=== PATIENT | male | born 1965 | race Two or more races ===

== ENCOUNTER → 2016-11-27 | Outpatient (CLI) | payer MEDICARE, MEDICAID ==
--- NOTE | 2016-12-17 00:40 | ECWPNPC ---
PATIENT NAME: CARRIE BERRIOS : 1965 GENDER: MALE VISIT DATE: 11/27/2016 DISCHARGE DATE: 11/27/16 1426 VISIT LOCKED DATE TIME: PHYSICIAN: MILLA WHEELER RESOURCE: MILLA WHEELER REASON FOR APPOINTMENT 1. THORACIC/LOW BACK HISTORY OF PRESENT ILLNESS FALL RISK SCREENIN51 Y/O MALE REFERRED BY [facility] FOR EVALUATION OF OF CHRONIC LOW BACK PAIN AND LEFT LEG PAIN.PAIN BEGAN SEVERAL YEARS AGO WITHOUT PRECIPITATING EVENT.PAIN IS AGGREVATED BY PROLONGED SITTING OR STANDING.RELIEVED SOMEWHAT WITH HEAT.TRIALED PT 2 YEARS AGO WITHOUT IMPROVEMENT.RATING PAIN VAS 7/10.PAIN IS CONSTANT BURNING AND ACHING.REPORTS POOR SLEEP DUE TO PAIN. SCREENING :NO FALLS IN THE PAST YEAR PAIN SCREENING: PATIENT HAS A COMPLAINT OF ACUTE OR CHRONIC PAIN :YES CURRENT MEDICATIONS TAKING MELOXICAM 15 MG TABLET 1 TABLET ORALLY ONCE A DAY TAKING GABAPENTIN 300 MG CAPSULE 1 CAPSULE ORALLY THREE TIMES A DAY MEDICATION LIST REVIEWED AND RECONCILED WITH THE PATIENT PAST MEDICAL HISTORY EMPHYSEMA LOW BACK PAIN ALLERGIES TRAMADOL: RASH: ALLERGY FLEXERIL: RASH: ALLERGY NAPROXEN: RASH: ALLERGY IBUPROFEN: BREATHING PROBLEMS: ALLERGY MORPHINE: BLINDING HEADACHE: ALLERGY SURGICAL HISTORY LEFT EARDRUM RECONSTRUCTION CHILD FAMILY HISTORY FATHER: 72 YRS, DIAGNOSED WITH CANCER MOTHER: 70 YRS, DIAGNOSED WITH CANCER 3 BROTHER(S) , 3 SISTER(S) - HEALTHY. 1 SISTER WITH LUPUS AND MS1 SISTER W FIBROMYALGIA, RA. SOCIAL HISTORY GENERAL: TOBACCO USE ARE YOU A:CURRENT SMOKER HOW MANY CIGARETTES A DAY DO YOU SMOKE?31 OR MORE HOW SOON AFTER YOU WAKE UP DO YOU SMOKE YOUR FIRST CIGARETTE?WITHIN 5 MIN HOW OFTEN DO YOU SMOKE CIGARETTES?EVERY DAY PATIENT COUNSELED ON THE DANGERS OF TOBACCO USE AND URGED TO QUIT:11/27/2016 ARE YOU INTERESTED IN QUITTING?NOT READY TO QUIT COUNSELED THE PATIENT ON SMOKING EFFECTS, EDUCATION [id number]/14/2017 LUNG CANCER SCREENING SMOKING STATUS:CURRENT SMOKER ALCOHOL SCREENING POINTS0 INTERPRETATIONNEGATIVE RESTORATIONIST [id number] ANABAPTIST LANGUAGE LANGUAGES SPOKEN:[place]EN[place] EDUCATION LEVEL OF EDUCATION:HIGH SCHOOL LEARNING BARRIERS / SPECIAL NEEDS HEARING IMPAIRED?NO VISION IMPAIRED?YES :CORRECTIVE LENSES COGNITIVELY IMPAIRED?NO READINESS TO LEARN?YES LEARNING PREFERENCES?YES :[employer] DIRECTIVES HEALTH CARE PROXY?NO WOULD YOU LIKE MORE INFORMATION?NO DO YOU HAVE A DNR?NO WOULD YOU LIKE MORE INFORMATION?NO LIVING WILL?NO WOULD YOU LIKE MORE INFORMATION?NO POWER OF DYNAMITE PACKING MACHINE FEEDER?NO HOSPITALIZATION/MAJOR DIAGNOSTIC PROCEDURE DENIES PAST HOSPITALIZATION REVIEW OF SYSTEMS REVIEWED BY: PROVIDER: MILLA FINN . CONSTITUTIONAL: ANY CHANGE IN YOUR MEDICAL CONDITION? NO . CHILLS NO . FEVER NO . INFECTION: DO YOU HAVE NEW INFECTIONS? NO . DO YOU HAVE HISTORY OF MRSA? NO . MUSCULOSKELETAL: ANY NEW PATTERNS OF PAIN OR NUMBNESS? NO . SYTEMIC LUPUS NO . GASTROENTEROLOGY: ANY NEW CHANGE IN BOWEL CONTROL? NO . BARRETTS ESOPHAGUS NO . CIRRHOSIS NO . HEPATITIS NO . LIVER FAILURE NO . ACID REFLUX NO . UNEXPLAINED WEIGHT LOSS NO . GENITOURINARY: ANY NEW CHANGE IN BLADDER CONTROL? NO . IS THERE A CHANCE YOU COULD BE ? NO . HEMATOLOGY/LYMPH: DO YOU TAKE ANY BLOOD THINNERS? (FOR EXAMPLE- COUMADIN, PLAVIX, AGGRENOX, PLATEL, PRADAXA, OR XARELTO) NO . WHEN WAS YOUR LAST DOSE? DATE: TIME: . LOW PLATELET COUNT NO . SICKLE CELL DISEASE NO . VON WILLIEBRANDS NO . FACTOR V LEIDEN NO . THALLASEMIA NO . ANEMIA NO . EASY BRUISING NO . NEUROLOGY: HAVE YOU FALLEN IN THE PAST 6 MONTHS? NO . ANY NEW EXTREMITY NUMBNESS OR WEAKNESS? NO . HEAD INJURY NO . DEMENTIA NO . CEREBRAL PALSY NO . MULTIPLE SCLEROSIS NO . DIZZINESS NO . HEADACHE NO . STROKES NO . VERTIGO NO . CARDIOLOGY: DO YOU HAVE A PACEMAKER OR DEFIBRILLATOR? NO . ANGINA NO . HEART ATTACK NO . HEART SURGERY NO . CONGESTIVE HEART FAILURE/FLUID OVERLOAD NO . CHEST PAIN NO . HIGH BLOOD PRESSURE NO . IRREGULAR HEART BEAT NO . RESPIRATORY: HAVE YOU BEEN SICK IN THE PAST WEEK? NO . FEVER NO . FLU LIKE SYMPTOMS? NO . CPAP NO . BYPAP NO . ASTHMA NO . EMPHYSEMA NO . CHRONIC LUNG DISEASES NO . SHORTNESS OF BREATH ON EXERTION NO . COUGH NO . SNORING NO . INTEGUMENTARY: DO YOU HAVE ANY RASHES OR OPEN SORES? NO . ALLERGIC/IMMUNO: ARE YOU ALLERGIC TO SHELLFISH OR IV DYE? NO . ANY NEW ALLERGIES? NO . PSYCHIATRIC: DO YOU HAVE THOUGHTS OF HURTING YOURSELF OR SOMEONE ELSE? NO . ARE YOU ABUSED, NEGLECTED, OR IN AN UNSAFE ENVIRONMENT? NO . ENDOCRINOLOGY: ARE YOU DIABETIC? NO . THYROID DISORDER NO . OTHER: DO YOU NEED ANY PRESCRIPTIONS? NO . IF YES, PLEASE LIST: ____ . ANY NEW PROBLEMS WITH YOUR MEDICATIONS? NO . WHEN DID YOU LAST EAT? ____ . WHEN DID YOU LAST DRINK? ____ . WHAT DID YOU LAST DRINK? ____ . NAME OF PERSON DRIVING YOU HOME? ____ . DO YOU HAVE ANY OTHER QUESTIONS OR CONCERNS NO . VITAL SIGNS WT 154.0 LBS, HT 65", BMI 25.62 INDEX, BP 144/93 MM HG, HR 80 /MIN, RR 16 /MIN, TEMP 98.7 F, OXYGEN SAT % 91%, SAFE IN ENV? (Y/N) Y, NA INITIALS TL 1334, REVIEWED BY: EM. EXAMINATION GENERAL EXAMINATION: GENERAL APPEARANCE:COMFORTABLE,ALERT,, COOPERATIVE . PSYCHAFFECT NORMAL. NECK:NO LYMPHADENOPATHY. LUNGS:LUNG BROWN ARE CLEAR TO AUSCULTATION BILATERALLY. GOOD MOVEMENT OF AIR. HEART:S1, S2 IN A REGULAR RATE AND RHYTHM. NO SIGNIFICANT MURMURS, RUBS OR GALLOPS NOTED. BACK:TENDERNESS OVER L/S AXIS.SPECIFIC POINT TENDERNESS OVER LEFT SIJ. ABDOMEN:SOFT, NON-TENDER, NO ORGANOMEGALY, BOWEL SOUNDS ARE NORMAL. LUMBAR SPINE/LOWER BACK: PALPATION:TRIGGER POINT LEFT LUMBAR PARASPINAL. MOTOR SYSTEM:5/5 BLE. SENSORY EXAM:NORMAL BILATERAL LE. REFLEXES:2/4 AND SYMMETRIC BLE. ASSESSMENTS LOW BACK PAIN POTENTIALLY ASSOCIATED WITH RADICULOPATHY - M54.5 (PRIMARY) MYALGIA - M79.1 TREATMENT LOW BACK PAIN POTENTIALLY ASSOCIATED WITH RADICULOPATHY [facility] MRI SPINE, L.S. WITHOUT [id number] PROCEDURE CODES FA211 ESTABILISHED PATIENT [facility] FACILITY CHARGE G8730 PAIN ASSESS POS TOOL F/U PLAN DOC G8427 DOC MEDS VERIFIED W/PT OR RE DISPOSITION & COMMUNICATION FOLLOW UP 4 WEEKS ELECTRONICALLY SIGNED BY HUMA MORENO ON 12/16/2016 AT 01:19 PM EDT DISCLAIMER : THIS IS A VISIT SUMMARY EXTRACTED FROM THE [employer] CHART. IT IS NOT A COPY OF THE [employer] PROGRESS NOTE. MARLENA
== END ==
LOC: M PAIN 13:20
PROVIDERS: ATTEND Nurse Practitioner Family
DX: M54.5 Low back pain (principal); M79.1 Myalgia; G89.29 Other chronic pain; Z79.899 Other long term (current) drug therapy; F17.210 Nicotine dependence, cigarettes, uncomplicated; Z88.5 Allergy status to narcotic agent; Z88.6 Allergy status to analgesic agent; Z88.8 Allergy status to other drugs, medicaments and biological substances

== ENCOUNTER → 2017-06-01 | Outpatient (REF) | payer MEDICARE, MEDICAID ==
[2017-06-01 17:33] LABS: BASO # 0.1 10^3/uL (0.0-0.2); BASO % 0.8 % (0.0-1.0); EOS # 0.3 10^3/uL (0.0-0.50); EOS % 2.2 % (0.0-3.0); HEMOGLOBIN 18.4 g/dl (14.0-18.0); IMMATURE GRANULOCYTE # 0.1 10^3/uL (0-0); IMMATURE GRANULOCYTE % 0.6 % (0-0); LYMPH # 3.2 10^3/uL (1.5-4.5); MEAN CORPUSCULAR HEMOGLOBIN 27.1 pg (27.0-33.0); MEAN CORPUSCULAR HGB CONC 31.7 g/dl (32.0-36.5); MEAN CORPUSCULAR VOLUME 85.5 fl (80.0-96.0); MONO # 1.1 10^3/uL (0.0-0.8); MONO % 9.6 % (0.0-5.0); NEUTROPHILS # 6.8 10^3/uL (1.8-7.7); NEUTROPHILS % 58.8 % (36.0-66.0); PLATELET COUNT, AUTOMATED 279 10^3/uL (150-450); RED BLOOD COUNT 6.78 10^6/uL (4.30-6.10); RED CELL DISTRIBUTION WIDTH 17.4 % (11.5-14.5); WHITE BLOOD COUNT 11.6 10^3/uL (4.0-10.0)
[2017-06-01 18:08] LABS: CREATININE FOR GFR 0.77 MG/DL (0.70-1.30); GLOMERULAR FILTRATION RATE > 60.0 (>60)
[2017-06-01 18:08] LABS: BLOOD UREA NITROGEN 14 MG/DL (7-18)
[2017-06-03 08:06] LABS: ALPHA 1 ANTITRYPSIN 147 mg/dL (90-200)
== END ==
LOC: M LAB REF 16:59
DX: J43.1 Panlobular emphysema (principal)
CPT/HCPCS: 82565

== ENCOUNTER → 2018-03-29 | Outpatient (CLI) | payer MEDICARE, MEDICAID | LOC: M PLARAD 13:10 | DX: R59.0 Localized enlarged lymph nodes (principal); N28.1 Cyst of kidney, acquired; N40.0 Benign prostatic hyperplasia without lower urinary tract symptoms; N42.0 Calculus of prostate | CPT/HCPCS: 78815 ==

== ENCOUNTER → 2018-04-19 | Outpatient (CLI) | payer MEDICARE, MEDICAID | LOC: M SLEEP 19:52 | DX: G47.33 Obstructive sleep apnea (adult) (pediatric) (principal); R06.83 Snoring | CPT/HCPCS: 95810 ==

== ENCOUNTER 2019-10-10 06:27 | Inpatient (IN) | payer MEDICARE, MEDICAID ==
[2019-10-10] VITALS (16 sets, daily range): BP systolic 118–144; BP diastolic 64–95; O2SAT 84–94
[~2019-10-10] VITALS: Ht 165.1 cm; Wt 64.8 kg
[~2019-10-10 06:27] MED LIST: ANOR1AER INH; ASPI81TA85 PO; HYDR-3713 PO; PROAAER10 INH; SIMV40TA20 PO
[2019-10-10] MEDS ORDERED: SALMETEROL DISKUS 50MCG INHALER (SEREVENT) INH SCH (09:00)
[2019-10-10 09:07] LABS: ABG BASE EXCESS 12.1 (-2.0-2.0); ABG HCO3 42.7 MEQ/L (22.0-26.0); ABG O2 SATURATION 90.2 % (95.0-99.0); ABG STANDARD HCO3 35.8 MEQ/L (22.0-26.0); ABG TOTAL CO2 45.1 MEQ/L (22.0-29.0); ABG pH (ARTERIAL) 7.345 UNITS (7.350-7.450)
[2019-10-10] MEDS ORDERED: ALBUTEROL 90 MCG/ACT 8GM HFA INHALER INH PRN (10:30)
[2019-10-10 10:35] LABS: MAGNESIUM LEVEL 2.2 MG/DL (1.8-2.4)
[2019-10-10] MEDS ORDERED: TIOTROPIUM INHALER/CAPSULE (SPIRIVA) INH SCH (10:40)
[2019-10-10 11:19] LABS: HEMATOCRIT 59.6 % (42.0-52.0); MEAN CORPUSCULAR HEMOGLOBIN 29.3 pg (27.0-33.0); MEAN CORPUSCULAR HGB CONC 29.2 g/dl (32.0-36.5); MEAN CORPUSCULAR VOLUME 100.3 fl (80.0-96.0); PLATELET COUNT, AUTOMATED 185 10^3/uL (150-450); RED BLOOD COUNT 5.94 10^6/uL (4.30-6.10); WHITE BLOOD COUNT 7.5 10^3/uL (4.0-10.0)
[2019-10-10 11:21] LABS: HEMOGLOBIN 17.4 g/dl (13.5-17.5)
[2019-10-10 11:32] LABS: ALBUMIN 3.2 GM/DL (3.2-5.2); ALT/SGPT 14 U/L (12-78); BILIRUBIN,TOTAL 0.8 MG/DL (0.2-1.0); BLOOD UREA NITROGEN 15 MG/DL (7-18); CALCIUM LEVEL 8.9 MG/DL (8.5-10.1); CARBON DIOXIDE LEVEL 47 MEQ/L (21-32); CHLORIDE LEVEL 89 MEQ/L (98-107); CREATININE FOR GFR 0.53 MG/DL (0.70-1.30); GLOMERULAR FILTRATION RATE > 60.0 (>56); GLUCOSE, FASTING 117 MG/DL (70-100); SODIUM LEVEL 139 MEQ/L (136-145); TOTAL PROTEIN 6.7 GM/DL (6.4-8.2)
[2019-10-10] MEDS ORDERED: AZITHROMYCIN 250MG TABLET PO ONE (12:00)
--- NOTE | 2019-10-10 12:10 | REP ---
PORTABLE CHEST X-RAY: Single view. HISTORY: COPD exacerbation. No comparison chest x-rays. Comparison is made with PET/CT imaging from March 29, 2018. FINDINGS: Monitoring electrodes overlie the chest. The lungs are symmetrically aerated and free of infiltrate. The pleural angles are sharp. Heart size is at the upper range of normal. Vascular interstitial markings are somewhat prominent. IMPRESSION: Borderline heart size. No focal infiltrate. Prominent pulmonary vascular interstitial markings. Electronically Signed by Dionte Tanner MD 10/10/2019 05:58 P
[2019-10-10] MEDS ORDERED: cefTRIAXone SOD 2 GM in D5W MINI-BAG PLUS 50 ML IV SCH (13:00)
[2019-10-10] MEDS: LEVALBUTEROL 1.25 MG/0.5 ML CONCENTRATE NEB INH SCH ×3 (14:11→23:09)
[2019-10-10] MEDS: MOXIFLOXACIN 400 MG TAB PO SCH (14:32)
--- NOTE | 2019-10-10 15:11 | HPEPDOC ---
[facility] Medical History & Physical Date of Admission October 10, 2019 Date of Service: October 10, [address] Marcelo Zamorano D.O. Pulmonology Attending Physician: PRISCA GRAMAJO MD History and Physical CHIEF COMPLAINT: Weakness HISTORY OF PRESENT ILLNESS: Jaime is a 53-year-old male with PMHx of O2 dependent COPD on 4 L continuously at home, sleep apnea not on CPAP, who presented as a direct admission from [facility] ([facility]) for acute hypercapnic respiratory failure. Over the past week, he has had consistent weakness, most prominently in his lower extremities with multiple falls. He denies any loss of consciousness or direct contact to the head with any fall. He reports falling, on average, twice per day. One fall occurred into a mirror, which subsequently broke and caused minor cuts to his elbow and left forearm, while all other falls occurred on to a carpeted floor. He believes the main cause of his falls is his lower extremities "giving out," and not due to mechanical fall etiologies. He also endorses accompanying upper and lower extremity shakes/tremors in the last week, which, he feels, have exacerbated his fall risk. Due to his weakness, he has struggled to get out of bed over the past few days and, as a result, has not eaten a full meal since Wednesday (10/05). He denies any shortness of breath over the past week and states the main impetus behind his presentation to [facility] was a witnessed fall by his roommate. The roommate subsequently informed his sister, and she then called EMS. At [facility], his initial arterial blood gas was pH 7.29/pCO2 117/HCO3 55.9 and he was subsequently placed on non-invasive mechanical ventilation/BiPAP and transferred to [facility]. Other notable [facility] labs: CRP 23.1, BNP 485, and albumin 3.0. Initial ABG on presentation [facility] was pH 7.345/pCO2 80/PaO2 59. Of note, he recently quit smoking 2 weeks ago after a 78 pack year history largely due to encouragement from his sister. He follows with Dr. Marcelo Zamorano q6mo for outpatient pulmonology care. He verbally confirms his CODE STATUS is full code. PAST MEDICAL HISTORY: COPD, O2-dependent; uses 4L continuously at home Sleep apnea, not on home CPAP Former tobacco user (78-pack year history) Chronic back pain PAST SURGICAL HISTORY: Left ear drum reconstruction SOCIAL HISTORY: Single. Lives with sister and fellow roommate. Has 3 children. Currently unemployed on disability. 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 He is a former smoker, having quit 2 weeks ago after smoking for 39 years, averaging 2 packs per day (78 year pack history). Denies current or former alcohol use or illegal drug use. FAMILY HISTORY: Father: ; hypertension, cancer (patient unsure if it is liver or renal cancer) Mother: ; COPD One sister whom he lives with history of multiple myeloma Children: 3 grown children who are healthy ALLERGIES: Please see below. REVIEW OF SYSTEMS: CONSTITUTIONAL: Endorses roughly 10 pound unintentional weight loss in the past 6 months. Denies fever, chills, night sweats HEENT: Endorses nearsightedness and chronic blurry vision. Denies eye pain, ear pain, tinnitus, rhinorrhea, sinus congestion, dysphagia or odynophagia CARDIOVASCULAR: Denies chest pain, chest pressure, palpitations, lower extremity swelling RESPIRATORY: Denies shortness breath, cough, or pleuritic chest pain GASTROINTESTINAL: Denies abdominal pain, nausea, vomiting, diarrhea, recent blood in the stool GENITOURINARY: Denies dysuria or hematuria SKIN: Endorses minor scratches over his left elbow and dorsal left forearm MUSCULOSKELETAL: Endorses recent bilateral leg weakness; chronic back pain NEUROLOGICAL: Denies headache, lightheadedness, near-syncope, syncope, numbness or paresthesias of the extremities ENDOCRINE: Denies cold or heat intolerance HOME MEDICATIONS: Please see below. PHYSICAL EXAMINATION: VITAL SIGNS: Temperature 99.4, pulse 87, respiratory rate 27, blood pressure 126/87, pulse oximetry 89 % on 6 L high flow nasal cannula. PHYSICAL EXAMINATION: VITAL SIGNS: Please see below. GENERAL APPEARANCE: Laying in bed wearing noninvasive mechanical ventilation/BiPAP. No acute distress. Alert and oriented 3. Calm and cooperative. Easily distracted. HEENT: Wearing BiPAP mask. Normocephalic, atraumatic. PERRLA, noninjected, anicteric sclera. No teeth present. [place] and dry mucous membranes. Neck is supple with no cervical lymphadenopathy appreciated. RESPIRATORY: Breathing on 6 L of high flow nasal cannula. Bilateral squeaks with bilateral lung base, moderate inspiratory crackles. Poor respiratory effort with mild accessory muscle use (trapezius) and diminished tidal volume. Symmetric chest expansion. Speaking full sentences. CARDIOVASCULAR: RRR, no murmurs/rubs/gallops, +S1, S2. +hepatojugular reflex ABDOMEN: Soft, nontender. Moderate abdominal distention with no guarding or rigidity. Hepatomegaly. Negative White sign. EXTREMITIES: B/l UE fine tremors, more pronounced at rest. Lower extremities fr ee of edema with no appreciated cyanosis or clubbing NEUROLOGICAL: Awake, alert and oriented 3. No focal neurologic deficits appreciated. Sensation to light touch intact bilaterally, UE and LE PSYCHIATRIC: Mood and affect appear appropriate Skin: Skin overlying feet appears dirty and feet are cool to the touch. LN: No significant cervical or supraclavicular lymphadenopathy LABORATORY DATA: Please see below. IMAGING: Portable chest x-ray, 10/10/19: FINDINGS: Monitoring electrodes overlie the chest. The lungs are symmetrically aerated and free of infiltrate. The pleural angles are sharp. Heart size is at the upper range of normal. Vascular interstitial markings are somewhat prominent. IMPRESSION: Borderline heart size. No focal infiltrate. Prominent pulmonary vascular interstitial markings. MICROBIOLOGY: Please see below. ASSESSMENT & PLAN: This is a 53-year-old male w/ h/o O2 dependent COPD and sleep apnea not on home CPAP, who presented as direct admit from [facility] with acute hypercapnic respiratory failure secondary to COPD exacerbation. #Acute hypercapnic respiratory failure 2/2 COPD exacerbation -reported initial ABG at [facility]: pH 7.27/pCO2 117; placed on BiPap and transferred to [facility] with subsequent ABG: pH 7.345/pCO2 80/PaO2 59 -initial [facility] ABG shows pH near NL range with pCO2 80, likely indicating this high pCO2 is close to his compensated baseline and he's a chronic CO2 retainer characteristic of a COPD pts -With repeat ABG approaching nl pH, pt was taken off BiPap to see how he tolerates high-flow NC (initial O2 sat on 6L 88-90%) -Portable CXR showed no infiltrate with prominent pulmonary vascularization -home albuterol prn inhaler continued; home Anoro not on [facility] formulary, with possible alternatives held in setting of acute exacerbation with ordered short- acting inhalers held -d/t home O2-dependence with COPD, IV steroids chosen for acute anti- inflammation -scheduled Xopenex nebulizer treatments ordered (opted for rather than DuoNebs due to upper limit nl HRs and had mild tremors on exam) -Initial ABx choice of ceftriaxone and azithromycin; subsequently switched to PO moxifloxacin by pulmonology/CC service -Nocturnal BiPap ordered qHS and naps -Pulmonology/ Critical Care service consulted and primary team appreciates their insight and recommendations -O2 saturation titration orders: 88-92% -Continuous pulse ox -Two BCx + sputum cx and gram stain + procalcitonin ordered and pending -initial labs ordered: CBC, CMP, sMg, lactic acid #Chronic back pain -home norco continued -takes chronically at home; nonetheless, on pulse ox for monitoring #DVT prophylaxis: sc lovenox Disposition: Pending improved respiratory status/oxygenation Vital Signs Vital Signs Date Time Temp Pulse Resp B/P (MAP) Pulse Ox O2 Delivery O2 Flow Rate FiO2 10/10/19 12:00 99.2 102 20 144/83 (103) 88 High Flow Cannula 6.0 10/10/19 08:00 40 Laboratory Data Labs 24H Laboratory Tests 2 10/10/19 08:48: Blood Gas Bicarbonate Standard 35.8H, Arterial Blood pH 7.345L, Arterial Blood Partial Pressure CO2 80.0*H, Arterial Blood Partial Pressure O2 59.0L, Arterial Blood Total CO2 45.1H, Arterial Blood HCO3 42.7H, Arterial Blood Base Excess 12.1H, Arterial Blood Oxygen Saturation 90.2L 10/10/19 09:39: Nucleated Red Blood Cells % (auto) 0.0, Anion Gap 3L, Glomerular Filtration Rate > 60.0, Lactic Acid Level 0.9, Calcium Level 8.9, Magnesium Level 2.2, Total Bilirubin 0.8, Aspartate Amino Transf (AST/SGOT) 15, Alanine Aminotransferase (ALT/SGPT) 14, Alkaline Phosphatase 92, Total Protein 6.7, Albumin 3.2, Albumin/Globulin Ratio 0.9 CBC/BMP Laboratory Tests 10/10/19 09:39 Microbiology Microbiology 10/10/19 Blood Culture, Received Pending 10/10/19 Blood Culture, Received Pending Home Medications Scheduled Umeclidinium Brm/Vilanterol Tr (Anoro Ellipta 62.5-25 Mcg INH) 1 Aer Aer, 1 PUFF INH QHS Scheduled PRN Albuterol Sulfate (Proair Hfa) 108 Mcg/Act Aer, 2 PUFF INH for SHORTNESS OF BREATH Hydrocodone/Acetaminophen (Hydrocodone-Acetamin 5-325 mg) 1 Tab Tab, 1 TAB PO BID PRN for PAIN Allergies Coded Allergies: ibuprofen (Unverified Allergy, Severe, difficulty breathing, 10/10/19) naproxen (Unverified Allergy, Severe, rash,difficulty breathing, 10/10/19) tramadol (Unverified Allergy, Severe, difficulty breathing, 10/10/19) cyclobenzaprine (Verified Allergy, Intermediate, HIVES, 10/10/19) morphine (Unverified Adverse Reaction, Intermediate, severe headache, 10/10/19) A-FIB/CHADSVASC A-FIB History Current/History of A-Fib/PAF?: No Current PO Anticoag Therapy: GEM Hernandez D.O. October 10, 2019 14:38
[2019-10-10] MEDS: methylPREDNISolone INJ 40 MG/1 ML VIAL (J2920) IV SCH (17:48)
[2019-10-10] MEDS: IPRATROPIUM 0.02% SOLN 0.5MG/2.5 ML NEB INH SCH (23:09)
[2019-10-11] VITALS (18 sets, daily range): BP systolic 116–142; BP diastolic 71–87; O2SAT 87–93
--- NOTE | 2019-10-11 00:34 | CR ---
DATE OF CONSULTATION: 10/10/2019 CHIEF COMPLAINT: Falls. HISTORY OF PRESENT ILLNESS: Mr. Catalan is a 53-year-old male with a history of chronic obstructive pulmonary disease (COPD) Gold stage IV with chronic hypoxemic respiratory failure, on nasal cannula supplementation at 4 liters a minute, a history of sleep apnea, not on continuous positive airway pressure (CPAP), who presented with complaints of weakness and falls. The patient had noticed for the past week having weakness in his lower extremities with multiple falls. He denied having any lightheadedness or dizziness. No syncopal episodes and denied any injury or trauma to his head with these falls. He did also report having some twitching and tremors in his arms as well as in his legs for the past week, which he has never had before. The patient denied having any chest pain. He denied noticing any worsening shortness of breath or dyspnea. He does have some cough occasionally productive of mucus, which he did not feel had worsened significantly. He has noticed decreased oral intake due to weakness over the past few days. He denies having any fevers or chills. Denies noticing any significant wheezing. The patient reports he is mostly compliant with his inhaler therapy, particularly Anoro; however, he does not like the Arnuity and so is not very compliant with it. He has an albuterol rescue inhaler, which he states he uses as well, but does not use a nebulizer machine. PAST MEDICAL AND SURGICAL HISTORY: COPD. Chronic hypoxemic respiratory failure, on nasal cannula oxygen. Obstructive sleep apnea (KEVEN), not on CPAP. Nicotine dependence. Chronic back pain. Left eardrum reconstruction. 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 The patient states he was a former heavy smoker, about two packs a day for 39+ years. Had quit recently after his last visit with pulmonary a few weeks ago. Denies any significant alcohol use or illegal drug use. FAMILY HISTORY: Father with a history of hypertension and cancer unknown. Mother with a history of COPD. A sister with a history of multiple myeloma. HOME MEDICATIONS: Anoro, Arnuity, albuterol and hydrocodone acetaminophen as needed. ALLERGIES: IBUPROFEN, NAPROXEN, TRAMADOL, CYCLOBENZAPRINE, and MORPHINE. PHYSICAL EXAMINATION: Vital Signs: Temperature 99.4, pulse 87, respirations 27, blood pressure 126/87, oxygen saturation (O2 sat) 92% on bilevel positive airway pressure (BiPAP) at 40% FiO2. General: The patient is a thin male, is lying in bed, alert and oriented times three. He is using some accessory muscles for respiration. HEENT: Normocephalic, atraumatic. Pupils are reactive to light bilaterally. Mucous membranes are moist. Patient is edentulous. Neck: Supple. Trachea is midline. No palpable adenopathy. Cardiovascular: Regular rate and rhythm, somewhat distant heart sounds with normal S1, S2 and unable to appreciate any murmurs. Pulmonary: The patient has diminished breath sounds bilaterally with prolonged expiration and mild wheezes and occasional inspiratory squeaks. There are some occasional rhonchi noted as well and crackles at the bases. Abdomen: Soft, nontender. Mildly distended with bowel sounds present. Extremities: There is no significant lower extremity edema noted. The patient does have onychomycoses in his toenails. He has occasional twitching and fine tremors in his extremities. LABS: WBC 7.5, hemoglobin 17.4, platelets 185. Chemistry: Sodium 139, potassium 5.0, chloride 89, bicarbonate 47, BUN 15, creatinine 0.53, glucose 117. ABG on BiPAP: pH 7.345, pCO2 of 80, pO2 of 59.0. IMAGING STUDIES: Chest x-ray on admission showed no focal opacities. There are prominent interstitial markings and some evidence of hyperinflation. ASSESSMENT/PLAN: Mr. Catalan is a 53-year-old male with a history of COPD, Gold stage IV with chronic hypoxemic respiratory failure, on nasal cannula oxygen supplementation, previous history of sleep apnea, not on CPAP, who had presented with complaints of fall to an outside hospital. While there, the patient was found to have acute on chronic hypercarbic respiratory failure and was placed on BiPAP with an improvement in his hypercarbia as well as in his mental status and respiratory status. He was transferred here to the intensive care unit (ICU for further management. Acute on chronic hypercarbic respiratory failure in the setting of possible COPD exacerbation. - The patient's repeat ABG on BiPAP shows improvement to his baseline chronic hypercarbia. Will continue with settings of 18/8 with a 5 liter oxygen bleed and titrate oxygen (O2) to maintain saturation (sat) of 88-92%. The patient will be placed on a table top and can repeat ABG in the morning. - Continue with nasal cannula oxygen supplementation during the day and will titrate to maintain oxygen saturation of 88-92%. - Continue with Solu-Medrol 40 mg every 8 hours for acute COPD exacerbation and would discontinue (DC) ceftriaxone and azithromycin and change him to Avelox for COPD exacerbation as his x-ray does not show any focal opacities or infiltrates and he has no fevers or leukocytosis. - Will followup results of sputum culture. - Continue with Xopenex nebulizer and ipratropium nebulizer while admitted and can start him on his home inhalers of Anoro and Arnuity prior to discharge. - The patient will need a sleep study as an outpatient and follow up with pulmonary. He sees Dr. Zamorano in our pulmonary clinic. Deep vein thrombosis (DVT) prophylaxis: Lovenox. CODE STATUS: FULL CODE.
[2019-10-11] MEDS: methylPREDNISolone INJ 40 MG/1 ML VIAL (J2920) IV SCH ×3 (00:57→17:20)
[2019-10-11 04:54] LABS: BASO % 0.1 % (0.0-1.0); HEMATOCRIT 55.2 % (42.0-52.0); HEMOGLOBIN 16.4 g/dl (13.5-17.5); LYMPH # 0.5 10^3/uL (1.5-5.0); LYMPH % 7.1 % (24.0-44.0); MEAN CORPUSCULAR HEMOGLOBIN 29.6 pg (27.0-33.0); MEAN CORPUSCULAR HGB CONC 29.7 g/dl (32.0-36.5); MEAN CORPUSCULAR VOLUME 99.6 fl (80.0-96.0); MONO # 0.2 10^3/uL (0.0-0.8); MONO % 2.2 % (0.0-5.0); NEUTROPHILS # 6.6 10^3/uL (1.5-8.5); NEUTROPHILS % 90.3 % (36.0-66.0); PLATELET COUNT, AUTOMATED 184 10^3/uL (150-450); RED BLOOD COUNT 5.54 10^6/uL (4.30-6.10); WHITE BLOOD COUNT 7.3 10^3/uL (4.0-10.0)
[2019-10-11] MEDS: MOXIFLOXACIN 400 MG TAB PO SCH (05:46)
[2019-10-11 05:48] LABS: ALBUMIN 2.8 GM/DL (3.2-5.2); ALT/SGPT 16 U/L (12-78); BILIRUBIN,TOTAL 0.5 MG/DL (0.2-1.0); BLOOD UREA NITROGEN 21 MG/DL (7-18); CALCIUM LEVEL 8.6 MG/DL (8.5-10.1); CARBON DIOXIDE LEVEL 49 MEQ/L (21-32); CHLORIDE LEVEL 92 MEQ/L (98-107); CREATININE FOR GFR 0.54 MG/DL (0.70-1.30); GLOMERULAR FILTRATION RATE > 60.0 (>56); GLUCOSE, FASTING 186 MG/DL (70-100); POTASSIUM SERUM 4.7 MEQ/L (3.5-5.1); SODIUM LEVEL 138 MEQ/L (136-145)
[2019-10-11 06:04] LABS: ABG BASE EXCESS 19.4 (-2.0-2.0); ABG HCO3 49.7 MEQ/L (22.0-26.0); ABG O2 SATURATION 94.1 % (95.0-99.0); ABG PARTIAL PRESSURE O2 69.8 mmHg (75.0-100.0); ABG STANDARD HCO3 43.8 MEQ/L (22.0-26.0); ABG TOTAL CO2 52.1 MEQ/L (22.0-29.0); ABG pH (ARTERIAL) 7.414 UNITS (7.350-7.450)
[2019-10-11 06:06] LABS: ABG PARTIAL PRESSURE CO2 79.4 mmHg (35.0-45.0)
[2019-10-11] MEDS: IPRATROPIUM 0.02% SOLN 0.5MG/2.5 ML NEB INH SCH ×2 (07:41→15:15)
[2019-10-11] MEDS: LEVALBUTEROL 1.25 MG/0.5 ML CONCENTRATE NEB INH SCH ×3 (07:41→20:12)
[2019-10-11] MEDS: ENOXAPARIN 40MG/0.4ML SYRINGE (J1650 PER 10MG) SC SCH (08:37)
[2019-10-11] MEDS ORDERED: AZITHROMYCIN 250MG TABLET PO SCH (09:00)
[2019-10-11] MEDS: NORCO, ANEXSIA 5/325MG TABLET (HYDROcodone/ACETAMINOPHEN) PO PRN ×2 (09:24→20:25)
[2019-10-11] MEDS ORDERED: VANCOMYCIN HCL 750 MG, VIAL MATE ADAPTER 1 EACH in D5W 250 ML IV ONE (12:00)
[2019-10-11] MEDS ORDERED: predniSONE 20 MG TAB PO SCH (12:30)
[2019-10-11] MEDS ORDERED: VANCOMYCIN HCL 500 MG in D5W MINI-BAG PLUS 100 ML IV ONE (13:00)
--- NOTE | 2019-10-11 19:54 | IPNPDOC ---
Date Seen The patient was seen on 10/11/19. Progress Note SUBJECTIVE: Josse was seen and examined today while lying upright in bed. He is on 8 L nasal cannula, saturating roughly 88%. He denies any adverse events overnight and used his BiPAP as ordered. He continues to endorse bilateral upper extremity shakes, but maintains he is not significant, only short of breath nor working harder to breathe. He seems to be quite wary of going home, very interested in wondering the next steps and became somewhat anxious during our visit today. He continues to deny any chest pain, chest pressure, palpitations, pleuritic chest pain, abdominal pain, nausea, vomiting, or diarrhea. OBJECTIVE PHYSICAL EXAMINATION: VITAL SIGNS: Please see below. GENERAL APPEARANCE: Laying in bed wearing noninvasive mechanical ventilation/BiPAP. No acute distress. Alert and oriented 3. Calm and cooperative. Easily distracted. HEENT: Wearing high flow NC. Normocephalic, atraumatic. PERRLA, noninjected, anicteric sclera. No teeth present. [place] and dry mucous membranes. Neck is supple with no cervical lymphadenopathy appreciated. RESPIRATORY: Breathing on 8 L of high flow nasal cannula at time of exam. Bilateral squeaks with bilateral lung base inspiratory crackles. Diminished breath sounds with mild accessory muscle use. Symmetric chest expansion. Speaking full sentences. CARDIOVASCULAR: RRR, no murmurs/rubs/gallops, +S1, S2. +hepatojugular reflex ABDOMEN: Soft, nontender. Moderate abdominal distention with no guarding or rigidity. Hepatomegaly. EXTREMITIES: B/l UE fine tremors, more pronounced at rest. Lower extremities free of edema with no appreciated cyanosis or clubbing NEUROLOGICAL: Awake, alert and oriented 3. No focal neurologic deficits appreciated. Sensation to light touch intact bilaterally, UE and LE PSYCHIATRIC: Mood and affect appear appropriate LABORATORY DATA, IMAGING STUDIES, MICROBIOLOGY: Please see below. ASSESSMENT AND PLAN: This is a 53-year-old male w/ h/o O2 dependent COPD and sleep apnea not on home CPAP, who presented as direct admit from [facility] on 10/09 with acute hypercapnic respiratory failure secondary to COPD exacerbation. #Acute hypercapnic respiratory failure 2/2 COPD exacerbation -reported initial ABG at [facility]: pH 7.27/pCO2 117; placed on BiPap and transferred to [facility] with subsequent ABG: pH 7.345/pCO2 80/PaO2 59 -ABG this morning: PH 7.414/PCO2 79.4; this likely represents close to his home baseline as he is chronically hypercarbic -Portable CXR showed no infiltrate with prominent pulmonary vascularization -home albuterol prn inhaler continued; home Anoro not on [facility] formulary, with possible alternatives held in setting of acute exacerbation with ordered short- acting inhalers held -due to home O2-dependence with COPD, IV steroids chosen for acute anti- inflammation -scheduled Xopenex nebulizer treatments ordered (opted for rather than DuoNebs due to upper limit nl HRs and had mild tremors on exam) -PO moxifloxacin, Day #2 -Nocturnal BiPap ordered qHS and naps -prn short acting anticholinergic added to med list today (ipratropium) -Pulmonology/ Critical Care service consulted and primary team appreciates their insight and recommendations -O2 saturation titration orders: 88-92% -Continuous pulse ox -1 of 2 initial blood cultures came back positive for gram-positive cocci in cl usters, potentially contaminated; follow up second set of blood cultures ordered today -sputum cx and gram stain + procalcitonin ordered and pending #Chronic back pain -home norco continued -takes chronically at home; nonetheless, on pulse ox for monitoring DVT prophylaxis: sc lovenox Disposition: Pending improvement respiratory status/oxygenation Attending attestation: I evaluated and examined the patient in person; I discussed the care with Resident in detail and agree with the plan above. VS, I&O, 24H, Fishbone Vital Signs/I&O Vital Signs Date Time Temp Pulse Resp B/P (MAP) Pulse Ox O2 Delivery O2 Flow Rate FiO2 10/11/19 16:00 8.0 10/11/19 16:00 93 Nasal Cannula 10/11/19 12:00 97.7 113 130/83 (99) 10/11/19 09:54 21 10/11/19 07:00 50 I&O- Last 24 Hours up to 6 AM 10/11/19 06:00 Intake Total 1260 ml Output Total 925 ml Balance 335 ml Laboratory Data 24H LABS Laboratory Tests 2 10/11/19 04:22: Immature Granulocyte % (Auto) 0.3, Neutrophils (%) (Auto) 90.3H, Lymphocytes (%) (Auto) 7.1L, Monocytes (%) (Auto) 2.2, Eosinophils (%) (Auto) 0.0, Basophils (%) (Auto) 0.1, Neutrophils # (Auto) 6.6, Lymphocytes # (Auto) 0.5L, Monocytes # (Auto) 0.2, Eosinophils # (Auto) 0.0, Basophils # (Auto) 0.0, Nucleated Red Blood Cells % (auto) 0.0, Anion Gap , Glomerular Filtration Rate > 60.0, Calcium Level 8.6, Total Bilirubin 0.5, Aspartate Amino Transf (AST/SGOT) 11, Alanine Aminotransferase (ALT/SGPT) 16, Alkaline Phosphatase 75, Total Protein 6.0L, Albumin 2.8L, Albumin/Globulin Ratio 0.9 10/11/19 05:52: Blood Gas Bicarbonate Standard 43.8H, Arterial Blood pH 7.414, Arterial Blood Partial Pressure CO2 79.4*H, Arterial Blood Partial Pressure O2 69.8L, Arterial Blood Total CO2 52.1H, Arterial Blood HCO3 49.7H, Arterial Blood Base Excess 19.4H, Arterial Blood Oxygen Saturation 94.1L CBC/BMP Laboratory Tests 10/11/19 04:22 Microbiology Microbiology 10/11/19 Blood Culture, Received Pending 10/11/19 Blood Culture, Received Pending 10/10/19 Blood Culture - Preliminary, Resulted No growth after 24 hours . All specim... 10/10/19 Blood Culture - Preliminary, Resulted GEM FONG D.O. October 11, 2019 19:54 PRISCA GRAMAJO MD Oct 18, 2019 20:32
[2019-10-11] MEDS ORDERED: VANCOMYCIN HCL 1,000 MG, VIAL MATE ADAPTER 1 EACH in D5W 250 ML IV SCH (20:00)
--- NOTE | 2019-10-11 22:01 | CCN ---
DATE: 10/11/2019 The patient was seen and examined this morning during bedside rounds. Overnight, the patient was attempted to be placed on table top BiPap with the same pressure settings that he was on with the V60 BiPap at 18/8. He was requiring only 50% FiO2 on the V60, however on the table top BiPap the patient had persistent desaturations and was on maximum 15 liters a minute O2 lead with a saturation still in the low 80s. The patient therefore had to be changed from the table top BiPap back to the V60 BiPap and he had improvement in his oxygen saturations. This morning he does require some increased oxygen supplementation from his baseline in particular with any physical activity or exertion. He continues to deny any significant worsening shortness of breath, dyspnea or cough. He has not had any fevers or chills overnight. PHYSICAL EXAMINATION Vital signs: Temperature 97.7, pulse 89, respirations 21, blood pressure 133/71, oxygen saturation 92% on 6 liters nasal cannula. General: The patient is a thin male who is sitting in bed alert and oriented times three. He is using some accessory muscles for respiration although this is likely chronic. HEENT: Normocephalic, atraumatic. Pupils reactive to light bilaterally. Mucous membranes are moist. Neck is supple. Trachea is midline. No palpable adenopathy. Cardiovascular: Regular rate and rhythm, distant heart sounds with normal S1, S2. Unable to appreciate murmurs. Pulmonary: The patient has diminished breath sounds bilaterally with prolonged expiration and occasional wheezes and rhonchi. Abdomen: Is soft, nontender, mildly distended. Bowel sounds present. Extremities: No significant lower extremity edema noted bilaterally. The patient has poor skin care and hygiene in his feet with onychomycosis noted. LABORATORY DATA: WBC 7.3, hemoglobin 16.4, platelets are 184. Chemistry: Sodium is 138, potassium 4.7, chloride 92, bicarbonate 49, BUN 21, creatinine 0.54, glucose 186. ABG: pH 7.4, pCO2 of 79.9, pO2 of 69.8. Microbiology: Preliminary blood culture one bottle showed gram positive cocci, second bottle was negative. ASSESSMENT/PLAN: Mr. Catalan is a 53-year-old male with history of COPD Gold stage IV with chronic hypoxemic respiratory failure on nasal cannula oxygen supplementation and previous history of sleep apnea not on C-PAP who has presented with complaints of fall at an outside hospital. While there the patient was found to have acute on chronic hypercarbic respiratory failure requiring BiPap with improvement in his acute hypercarbia as well as in his mental status and respiratory status. The patient was transferred to the ICU here for further management. Acute on chronic hypercarbic respiratory failure in the setting of a possible COPD exacerbation. - The patient's ABG this morning shows improvement to his chronic baseline hypercarbia. - The patient was attempted to be changed to a tabletop BiPap yesterday evening however, he was having persistent desaturations despite being on maximal oxygen bleed at 15 liters a minute. He was placed back on the V60 noninvasive positive pressure ventilation with improvement. Suspect patient is requiring need of a backup rate for his noninvasive positive pressure ventilation to prevent his desaturation. This may be due in part from a component of his KEVEN in addition to his hypercarbic respiratory failure from his end-stage COPD. - Will place the patient on a tabletop BiPap with the ability for a backup rate. Can also keep the patient on nasal cannula oxygen supplementation underneath the BiPap mask as well if needed to maintain his oxygen saturations of 88-92% overnight. - Will check a ABG in the morning on the new table top and if he is compensated will continue with this table top nightly and naps. - Continue with Solu-Medrol 40 mg every 8 hours and continue with Avelox for acute COPD exacerbation. - The patient's initial blood cultures, one bottle had shown gram-positive cocci, the second bottle was negative. Suspect this is likely a contamination and he has remained afebrile and without any leukocytosis. Avelox will cover most of the gram positives, particularly any skin organism and so will continue him with Avelox and discontinue the vancomycin. Can repeat a blood culture. - Continue with Xopenex and ipratropium and can restart him on his home inhalers of Arnuity and Anoro prior to discharge. - The patient will need a sleep study as an outpatient in order to be qualified for a noninvasive positive pressure ventilation at home due to insurance requirements. DVT prophylaxis. Lovenox. Code status. Full code .
[2019-10-12] VITALS (7 sets, daily range): BP systolic 119–150; BP diastolic 72–95
[2019-10-12] MEDS: methylPREDNISolone INJ 40 MG/1 ML VIAL (J2920) IV SCH ×2 (00:17→09:38)
[2019-10-12] MEDS: LEVALBUTEROL 1.25 MG/0.5 ML CONCENTRATE NEB INH SCH ×4 (02:35→20:06)
[2019-10-12] MEDS: IPRATROPIUM 0.02% SOLN 0.5MG/2.5 ML NEB INH SCH ×3 (02:35→14:46)
[2019-10-12 04:43] LABS: BASO % 0.1 % (0.0-1.0); HEMATOCRIT 53.8 % (42.0-52.0); HEMOGLOBIN 16.1 g/dl (13.5-17.5); LYMPH # 0.5 10^3/uL (1.5-5.0); LYMPH % 6.3 % (24.0-44.0); MEAN CORPUSCULAR HEMOGLOBIN 29.8 pg (27.0-33.0); MEAN CORPUSCULAR HGB CONC 29.9 g/dl (32.0-36.5); MEAN CORPUSCULAR VOLUME 99.4 fl (80.0-96.0); MONO # 0.4 10^3/uL (0.0-0.8); MONO % 4.3 % (0.0-5.0); NEUTROPHILS # 7.4 10^3/uL (1.5-8.5); NEUTROPHILS % 89.1 % (36.0-66.0); PLATELET COUNT, AUTOMATED 201 10^3/uL (150-450); RED BLOOD COUNT 5.41 10^6/uL (4.30-6.10); WHITE BLOOD COUNT 8.3 10^3/uL (4.0-10.0)
[2019-10-12] MEDS: MOXIFLOXACIN 400 MG TAB PO SCH (05:02)
[2019-10-12 05:29] LABS: ALBUMIN 2.8 GM/DL (3.2-5.2); ALT/SGPT 12 U/L (12-78); BILIRUBIN,TOTAL 0.3 MG/DL (0.2-1.0); BLOOD UREA NITROGEN 23 MG/DL (7-18); CALCIUM LEVEL 8.6 MG/DL (8.5-10.1); CARBON DIOXIDE LEVEL 44 MEQ/L (21-32); CHLORIDE LEVEL 95 MEQ/L (98-107); CREATININE FOR GFR 0.62 MG/DL (0.70-1.30); GLOMERULAR FILTRATION RATE > 60.0 (>56); GLUCOSE, FASTING 275 MG/DL (70-100); POTASSIUM SERUM 4.9 MEQ/L (3.5-5.1); SODIUM LEVEL 140 MEQ/L (136-145); TOTAL PROTEIN 6.1 GM/DL (6.4-8.2)
[2019-10-12 06:07] LABS: ABG BASE EXCESS 12.3 (-2.0-2.0); ABG HCO3 41.9 MEQ/L (22.0-26.0); ABG O2 SATURATION 96.3 % (95.0-99.0); ABG PARTIAL PRESSURE CO2 75.6 mmHg (35.0-45.0); ABG PARTIAL PRESSURE O2 85.8 mmHg (75.0-100.0); ABG STANDARD HCO3 36.1 MEQ/L (22.0-26.0); ABG TOTAL CO2 44.3 MEQ/L (22.0-29.0); ABG pH (ARTERIAL) 7.362 UNITS (7.350-7.450)
[2019-10-12] MEDS: DOCUSATE SODIUM 100 MG CAP PO SCH ×2 (09:37→21:00)
[2019-10-12] MEDS: NORCO, ANEXSIA 5/325MG TABLET (HYDROcodone/ACETAMINOPHEN) PO PRN ×2 (09:39→21:05)
[2019-10-12] MEDS: ENOXAPARIN 40MG/0.4ML SYRINGE (J1650 PER 10MG) SC SCH (09:40)
--- NOTE | 2019-10-12 14:53 | IPN ---
DATE: 10/12/2019 The patient was seen and examined this morning during bedside rounds. The patient was placed on the tabletop bilevel positive airway pressure (BiPAP) overnight with a backup rate as well as having nasal cannula oxygen supplementation underneath his face mask. He was able to be maintained with an oxygen saturation between 88-92% and his arterial blood gas (ABG) this morning shows chronic compensation of his chronic hypercarbic respiratory failure. This morning the patient states his breathing has been doing well. He denies any chest pain, has not had any significant wheezing and only a slight cough occasionally productive of mucus. He has a good appetite. Denies any lower extremity edema. No fevers or chills. He is interested in getting out of bed and ambulating with physical therapy (PT). PHYSICAL EXAMINATION Vital Signs: Temperature 98.5, pulse 88, respirations 26, blood pressure 150/95, oxygen saturation 92% on 8 liters nasal cannula. General: The patient is a thin male who is sitting in bed alert and oriented times three. He is able to speak in complete sentences. HEENT: Normocephalic, atraumatic. Pupils react to light bilaterally. Mucous membranes are moist. Neck: Supple. Trachea is midline. No palpable adenopathy. Cardiovascular: Regular rate and rhythm. Distant heart sounds. Normal S1, S2, and unable to appreciate murmurs. Pulmonary: Diminished breath sounds bilaterally with prolonged expiration. Improvement in breath sounds with occasional crackles at the bases with no significant wheezes or rhonchi. Abdomen: Is soft, nontender, nondistended. Bowel sounds present. Extremities: There is no significant lower extremity noted bilaterally. LABORATORY DATA: WBC 8.3, hemoglobin 15.1, platelets 201. Chemistry is 140, potassium 4.9, chloride is 95, bicarbonate is 24, BUN 23, creatinine 0.6, glucose 275. ABG: pH 7.362, pCO2 of 75.6, pO2 of 85.8. ASSESSMENT/PLAN: Mr. Catalan is a 53-year male with history of chronic obstructive pulmonary disease (COPD) Gold stage IV with chronic hypoxemic respiratory failure and chronic hypercarbic respiratory failure with a previous history of sleep apnea noncompliant not on continuous positive airway pressure (CPAP) who presented with complaints of fall from an outside hospital. The patient was found to have acute on chronic hypercarbic respiratory failure requiring BiPAP with improvement in his acute hypercarbia as well as in his mental status and respiratory status. The patient was transferred the intensive care unit (ICU) for further management. Acute on chronic hypercarbic respiratory failure with a history of chronic hypoxemic respiratory failure in the setting of possible COPD exacerbation. - The patient was able to tolerate a tabletop BiPAP yesterday with the backup rate as well with nasal cannula oxygen supplementation underneath the face mask. His ABG this morning shows a compensation of his chronic hypercarbia. - Can continue him on table top BiPAP with the settings of 18/8 with a respiratory rate of 12 and with oxygen supplementation as needed to maintain oxygen saturation of 88-92%. - The patient is on nasal cannula oxygen supplementation. Is requiring more than his baseline at this time and on exam today he has improvement in his wheezing and rhonchi but does have crackles noted bilaterally. The patient's admission chest x-ray did also show evidence of prominent pulmonary vascular marking and possible poor vascular congestion. Will check brain natriuretic peptide (BNP) and consider diuresis as suspect with his chronic hypoxemic respiratory failure he does have a component of pulmonary hypertension and may benefit from diuresis. - Can continue with Solu-Medrol. Would wean him down to 40 mg every 12 and continue with Avelox to complete a 5 day course for acute COPD exacerbation. - The patient's repeat blood cultures are pending. The preliminary blood culture had shown gram-positive cocci in one bottle and the second had no growth to date. Suspect he likely had a contamination of skin organisms. - Continue with Xopenex and ipratropium nebulizers. He can continue with home inhalers of Arnuity and Anoro prior to discharge. - The patient will need followup with a pulmonary with Dr. Zamorano an outpatient in order to have a sleep study done so that he can get noninvasive positive pressure ventilation at home. Deep venous thrombosis (DVT) prophylaxis, Lovenox. CODE STATUS: FULL CODE. Please do not hesitate to call if any further questions or concerns.
[2019-10-12 15:21] LABS: NT-PRO BNP 53 PG/ML (<125)
[2019-10-12] MEDS ORDERED: FUROSEMIDE 40 MG TAB PO ONE (20:30)
[2019-10-12] MEDS: predniSONE 20 MG TAB PO SCH (21:05)
--- NOTE | 2019-10-12 21:28 | IPNPDOC ---
Date Seen The patient was seen on 10/12/19. Progress Note SUBJECTIVE: Josse was seen and examined this morning by the hospitalist service while sitting upright in a chair. He is wearing 8 L of supplemental high flow oxygen via nasal cannula and just finished his breakfast. He continues to feel a bit anxious about his hospital course, but otherwise denies any adverse events overnight. He used tabletop BiPAP overnight and had bleed in and see O2 supplementation underneath the BiPAP facemask. Upon review, he was able to maintain overnight O2 saturations between 88 and 92%. He does not feel short of breath at the moment, and also denies chest pain, c hest pressure, palpitations, pleuritic chest pain, cough, abdominal pain, nausea, vomiting, or LE edema. He reports being able to walk with physical therapy, and feeling much stronger than he did just prior to his presentation. He has not had a bowel movement since being admitted and requests some p harmacotherapy assistance. OBJECTIVE PHYSICAL EXAMINATION: VITAL SIGNS: Please see below. GENERAL: Pleasant, mildly anxious, thin male seated in bedside chair. Wearing supplemental oxygen NC. Alert and oriented 3. HEENT: Wearing high flow NC. Normocephalic, atraumatic. PERRLA, noninjected, anicteric sclera. No pharyngeal erythema or exudate. Neck is supple with no cervical lymphadenopathy appreciated. RESPIRATORY: Breathing on 8 L of high flow nasal cannula at time of exam. Bilateral inspiratory crackles posteriorly. Little to no wheezing present, which is a change from previous days. Diminished breath sounds with mild accessory muscle use. Symmetric chest expansion. Speaking full sentences. CARDIOVASCULAR: RRR, no murmurs/rubs/gallops, +S1, S2. +hepatojugular reflex ABDOMEN: Soft, nontender. Moderate abdominal distention with no guarding or rigidity. Hepatomegaly. EXTREMITIES: The bilateral upper extremity tremors present on previous days are far less noticeable today. Lower extremities free of edema with no appreciated cyanosis or clubbing NEUROLOGICAL: Awake, alert and oriented 3. No focal neurologic deficits appreciated. Non-dysarthric speech. PSYCHIATRIC: Mood and affect appear appropriate LABORATORY DATA, IMAGING STUDIES, MICROBIOLOGY: Please see below. Echocardiogram: One has been ordered for tomorrow morning as there is suspicion for pulmonary hypertension with more crackles on exam today. DVT prophylaxis ordered?: Yes; manpreet lovenox ASSESSMENT AND PLAN: This is a 53-year-old male w/ h/o O2 dependent COPD and sleep apnea not on home CPAP, who presented as direct admit from [facility] on 10/09 with acute hypercapnic respiratory failure secondary to COPD exacerbation. #Acute hypercapnic respiratory failure 2/2 COPD exacerbation -reported initial ABG at [facility] on 10/09: pH 7.27/pCO2 117; placed on BiPap and transferred to [facility] with subsequent ABG: pH 7.345/pCO2 80/PaO2 59 -ABG this morning: PH 7.362/PCO2 75.6; this likely represents close to his home baseline as he is chronically hypercarbic -Exam today showed greater presence of crackles, with little to no wheezing, and chest x-ray upon admission was suspicious for pulmonary hypertension and pulmonary vascular congestion. As a result, patient's Solu-Medrol dosing was switched to 40 mg bid and BNP was ordered. -BMP today was unremarkable (53). Patient was given a one time oral 40 mg furosemide dose this evening, and an echocardiogram has been ordered for tomorrow morning. -Patient was downgraded today out of the ICU and is currently in the progressive care unit. -Continue with scheduled Xopenex nebulizer treatments -home albuterol prn inhaler continued -due to home O2-dependence with COPD, IV steroids were initially chosen for acute anti-inflammation -scheduled Xopenex nebulizer treatments ordered (opted for rather than DuoNebs due to upper limit nl HRs and had mild tremors on exam) -PO moxifloxacin, Day #3 -Continue with nocturnal BiPap qHS and with naps; c/w prn short acting anticholinergic (ipratropium) --O2 saturation titration orders: 88-92% -Continuous pulse ox -Pulmonology/ Critical Care service consulted and primary team appreciates their continued insights and recommendations -1 of 2 initial blood cultures came back positive for gram-positive cocci in clusters, potentially contaminated; follow up second set of blood cultures ordered yesterday, which have both had no growth after 24 hours. -Pro calcitonin was unremarkable (0.03) -sputum cx and gram stain ordered #Chronic back pain -home norco continued -takes chronically at home; nonetheless, on pulse ox for monitoring DVT prophylaxis: sc lovenox Disposition: Pending improvement respiratory status/oxygenation Disposition: Downgraded today out of ICU to PCU. Currently pending continued respiratory improvement down to baseline home O2 dependence of 4 L NC. Attending attestation: I evaluated and examined the patient in person; I discussed the care with Resident in detail and agree with the plan above. VS, I&O, 24H, Fishbone Vital Signs/I&O Vital Signs Date Time Temp Pulse Resp B/P (MAP) Pulse Ox O2 Delivery O2 Flow Rate FiO2 10/12/19 16:00 8.0 10/12/19 16:00 97.7 81 18 148/74 (98) 90 High Flow Cannula 10/12/19 10:09 50 I&O- Last 24 Hours up to 6 AM 10/12/19 06:00 Intake Total 1860 ml Output Total 1225 ml Balance 635 ml Laboratory Data 24H LABS Laboratory Tests 2 10/12/19 04:33: Immature Granulocyte % (Auto) 0.2, Neutrophils (%) (Auto) 89.1H, Lymphocytes (%) (Auto) 6.3L, Monocytes (%) (Auto) 4.3, Eosinophils (%) (Auto) 0.0, Basophils (%) (Auto) 0.1, Neutrophils # (Auto) 7.4, Lymphocytes # (Auto) 0.5L, Monocytes # (Auto) 0.4, Eosinophils # (Auto) 0.0, Basophils # (Auto) 0.0, Nucleated Red Blood Cells % (auto) 0.0, Anion Gap 1L, Glomerular Filtration Rate > 60.0, Calcium Level 8.6, Total Bilirubin 0.3, Aspartate Amino Transf (AST/SGOT) 16, Alanine Aminotransferase (ALT/SGPT) 12, Alkaline Phosphatase 65, FL-[id number]-Type Natriuretic Peptide 53, Total Protein 6.1L, Albumin 2.8L, Albumin/Globulin Ratio 0.8 10/12/19 05:51: Blood Gas Bicarbonate Standard 36.1H, Arterial Blood pH 7.362, Arterial Blood Partial Pressure CO2 75.6*H, Arterial Blood Partial Pressure O2 85.8, Arterial Blood Total CO2 44.3H, Arterial Blood HCO3 41.9H, Arterial Blood Base Excess 12.3H, Arterial Blood Oxygen Saturation 96.3 CBC/BMP Laboratory Tests 10/12/19 04:33 Microbiology Microbiology 10/11/19 Blood Culture - Preliminary, Resulted No growth after 24 hours . All specim... 10/11/19 Blood Culture - Preliminary, Resulted No growth after 24 hours . All specim... 10/10/19 Blood Culture - Preliminary, Resulted No Growth after 48 hours. All Specime... 10/10/19 Blood Culture - Preliminary, Resulted GEM FONG D.O. October 12, 2019 21:27 PRISCA GRAMAJO MD Oct 18, 2019 21:16
[2019-10-12] MEDS: FAMOTIDINE 20 MG TAB PO SCH (21:53)
[2019-10-13] VITALS (12 sets, daily range): BP systolic 118–164; BP diastolic 64–87; O2SAT 88–94
[2019-10-13] MEDS: LEVALBUTEROL 1.25 MG/0.5 ML CONCENTRATE NEB INH SCH ×4 (02:01→19:44)
[2019-10-13] MEDS: IPRATROPIUM 0.02% SOLN 0.5MG/2.5 ML NEB INH SCH ×3 (02:01→15:08)
[2019-10-13 04:23] LABS: BASO % 0.2 % (0.0-1.0); EOS % 0.1 % (0.0-3.0); HEMATOCRIT 56.1 % (42.0-52.0); HEMOGLOBIN 16.3 g/dl (13.5-17.5); LYMPH # 0.7 10^3/uL (1.5-5.0); LYMPH % 6.9 % (24.0-44.0); MEAN CORPUSCULAR HEMOGLOBIN 28.8 pg (27.0-33.0); MEAN CORPUSCULAR HGB CONC 29.1 g/dl (32.0-36.5); MEAN CORPUSCULAR VOLUME 99.3 fl (80.0-96.0); MONO # 0.5 10^3/uL (0.0-0.8); MONO % 5.5 % (0.0-5.0); NEUTROPHILS # 8.2 10^3/uL (1.5-8.5); NEUTROPHILS % 86.9 % (36.0-66.0); PLATELET COUNT, AUTOMATED 205 10^3/uL (150-450); RED BLOOD COUNT 5.65 10^6/uL (4.30-6.10); WHITE BLOOD COUNT 9.5 10^3/uL (4.0-10.0)
[2019-10-13 04:43] LABS: ALT/SGPT 16 U/L (12-78); BILIRUBIN,TOTAL 0.4 MG/DL (0.2-1.0); BLOOD UREA NITROGEN 25 MG/DL (7-18); CALCIUM LEVEL 8.3 MG/DL (8.5-10.1); CARBON DIOXIDE LEVEL 44 MEQ/L (21-32); CHLORIDE LEVEL 92 MEQ/L (98-107); GLOMERULAR FILTRATION RATE > 60.0 (>56); GLUCOSE, FASTING 205 MG/DL (70-100); POTASSIUM SERUM 4.4 MEQ/L (3.5-5.1); SODIUM LEVEL 137 MEQ/L (136-145); TOTAL PROTEIN 6.4 GM/DL (6.4-8.2)
[2019-10-13] MEDS: NORCO, ANEXSIA 5/325MG TABLET (HYDROcodone/ACETAMINOPHEN) PO PRN ×2 (06:40→20:08)
[2019-10-13] MEDS: MOXIFLOXACIN 400 MG TAB PO SCH (06:40)
[2019-10-13 08:11] LABS: ABG BASE EXCESS 9.1 (-2.0-2.0); ABG HCO3 40.1 MEQ/L (22.0-26.0); ABG O2 SATURATION 96.1 % (95.0-99.0); ABG PARTIAL PRESSURE O2 90.4 mmHg (75.0-100.0); ABG STANDARD HCO3 32.8 MEQ/L (22.0-26.0); ABG TOTAL CO2 42.7 MEQ/L (22.0-29.0); ABG pH (ARTERIAL) 7.291 UNITS (7.350-7.450)
[2019-10-13 08:20] LABS: ABG PARTIAL PRESSURE CO2 85.1 mmHg (35.0-45.0)
[2019-10-13] MEDS: predniSONE 20 MG TAB PO SCH ×2 (09:24→20:06)
[2019-10-13] MEDS: ENOXAPARIN 40MG/0.4ML SYRINGE (J1650 PER 10MG) SC SCH (09:25)
[2019-10-13] MEDS: DOCUSATE SODIUM 100 MG CAP PO SCH ×2 (09:25→20:06)
[2019-10-13] MEDS ORDERED: SLF 3 ML SYR IV PRN (13:00)
[2019-10-13] MEDS: SLF 3 ML SYR IV SCH ×2 (14:00→20:06)
--- NOTE | 2019-10-13 15:06 | ECHO ---
DATE OF STUDY: 10/13/2019 REFERRING PHYSICIAN: Dr. Paul Santos INDICATION: Pulmonary hypertension. HEIGHT: 155 cm WEIGHT: 63 kg 2-D MEASUREMENTS: Aortic annulus: 2.0 cm Aortic root: 3.1 cm Left atrium: 3.9 cm Ventricular septum: 1.19 cm Posterior wall: 1.21 cm Inferior vena cava: 2.0 cm (more than 50% respiratory variation) DOPPLER MEASUREMENTS: No aortic stenosis. No aortic regurgitation. Aortic valve velocity: 142 cm/sec LVOT velocity: 99.3 cm/sec LVOT VTI: 18.9 cm Very mild mitral regurgitation. No mitral stenosis. Mitral E velocity: 80.0 cm/sec Mitral A velocity: 57 cm/sec Mitral deceleration time: 58 ms Mild tricuspid regurgitation. Estimated right ventricular systolic pressure 49-53 mmHg assuming a right atrial pressure of 5-10 mmHg. No pulmonic regurgitation. Pulmonary artery acceleration time: 102 ms MITRAL ANNULAR TISSUE DOPPLER E prime lateral: 14.2 cm/sec DESCRIPTION: The rhythm was sinus. Image quality was fair. This was a 2-D, M-mode, color flow Doppler and pulsed wave Doppler examination and included mitral annular tissue Doppler. CONCLUSIONS: 1. Suggestive of moderate elevation of estimated right ventricular systolic pressure (49-53 mmHg). Normal right ventricular size and systolic fucntion. Mild tricuspid regurgitation. Mild right atrial size. 2. Borderline concentric left ventricular hypertrophy. Normal regional LV wall motion and wall thickening. Normal LV systolic function. Left ventricular ejection fraction (LVEF) 55% by visual estimate. Normal LV diastolic function. 3. No pericardial effusion. 4. Otherwise, normal appearing echocardiogram-Doppler findings.
[2019-10-13] MEDS: FAMOTIDINE 20 MG TAB PO SCH (20:06)
--- NOTE | 2019-10-13 22:41 | IPNPDOC ---
Date Seen The patient was seen on 10/13/19. Progress Note SUBJECTIVE: Josse was seen and examined this morning by the hospitalist service while lying upright in bed. He is just finished breakfast and is wearing high flow nasal cannula 15 L. His pulse ox was not properly attached. When it was reattached, his O2 saturation on the 15 L high flow was 93%. The supplemental oxygen was subsequently brought down to 8 L. Report from overnight team was that patient fluctuated between 8788 percent for O2 saturations while wearing nasal cannula underneath his tabletop BiPAP. It appears from logged oxygen saturations yesterday into today that he became oversaturated to 97%, and subsequently remained apneic longer overnight, causing elevation in PCO2 on this morning's ABG. Josse remains concerned about the next steps of his care. He denies any shortness of breath while wearing the high flow nasal cannula. He also denies any pleuritic chest pain and endorses only a mild intermittent nonproductive cough. In addition, he denies any current chest pain, palpitations, fever, chills, night sweats, abdominal pain, nausea, or vomiting. OBJECTIVE PHYSICAL EXAMINATION: VITAL SIGNS: Please see below. GENERAL: Pleasant, mildly anxious, thin lying upright in bed. Wearing supplemental high flow oxygen and see. Alert and oriented 3. HEENT: Wearing high flow NC. Normocephalic, atraumatic. PERRLA, noninjected, anicteric sclera.. Trachea is midline. RESPIRATORY: Breathing on 15 L of high flow nasal cannula initially, that was then switched to 8 L at time of exam. Bilateral inspiratory crackles posteriorly. No wheezes or rhonchi appreciated. Diminished breath sounds with mild accessory muscle use. Symmetric chest expansion. Speaking full sentences. CARDIOVASCULAR: RRR, no murmurs/rubs/gallops, +S1, S2. ABDOMEN: Soft, nontender. Moderate abdominal distention with no guarding or rigidity. EXTREMITIES: The bilateral upper extremity tremors present on previous days remain less noticeable. Lower extremities free of edema with no appreciated cy anosis or clubbing NEUROLOGICAL: Awake, alert and oriented 3. No focal neurologic deficits appreciated. Non-dysarthric speech. PSYCHIATRIC: Mood and affect appear appropriate LABORATORY DATA, IMAGING STUDIES, MICROBIOLOGY: Please see below. ASSESSMENT AND PLAN: This is a 53-year-old male w/ h/o O2 dependent COPD and sleep apnea not on home CPAP, who presented as direct admit from [facility] on 10/09 with acute hypercapnic respiratory failure secondary to COPD exacerbation. #Acute hypercapnic respiratory failure 2/2 COPD exacerbation -ABG this morning showed elevated pCO2 to 80s likely 2/2 over-oxygenation to 97% in the late afternoon/evening, keeping him apneic for longer time overnight -Continue with scheduled Xopenex nebulizer treatments -home albuterol prn inhaler continued; c/w scheduled IV steroids of solumderol 40mg bid per recommendation of pulmonology -c/w scheduled xopenex -PO moxifloxacin, Day #4 -Continue with nocturnal BiPap qHS and with naps; c/w prn short acting anticholinergic (ipratropium) -O2 saturation titration orders: 88-92%; continuous pulse ox -Pulmonology/ Critical Care service consulted and primary team appreciates their continued insights and recommendations -1 of 2 initial blood cultures came back positive for gram-positive cocci in clusters, potentially contaminated; follow up second set of blood cultures ordered Wednesday had no growth after 48 hours. -will need to schedule f/u with boxing promoter soon after d/c to obtain home BiPap -spoke at length with pt's sister and HCP Anna late this afternoon to make her aware of pt's developments and the goals of inpatient treatment moving forward. #Sleep apnea -review of prior records today showed overnight sleep study in April 2018 that demonstrated sleep apnea. -this likely worsens his overnight CO2 build-up and chronic retention -likely will use home BiPap upon d/c with coterminous supplemental O2 bled in #Chronic back pain -home norco continued -takes chronically at home; nonetheless, on pulse ox for monitoring DVT prophylaxis: sc lovenox Disposition: Pending continued respiratory improvement down to baseline home O2 dependence of 4 L NC. Attending attestation: I evaluated and examined the patient in person; I discussed the care with Resident in detail and agree with the plan above. VS, I&O, 24H, Fishbone Vital Signs/I&O Vital Signs Date Time Temp Pulse Resp B/P (MAP) Pulse Ox O2 Delivery O2 Flow Rate FiO2 10/13/19 20:38 17 94 High Flow Cannula 15.0 10/13/19 20:00 98.1 74 164/87 (112) 10/12/19 10:09 50 I&O- Last 24 Hours up to 6 AM 10/13/19 05:59 Intake Total 1440 ml Output Total 1900 ml Balance -460 ml Laboratory Data 24H LABS Laboratory Tests 2 10/13/19 03:17: Immature Granulocyte % (Auto) 0.4, Neutrophils (%) (Auto) 86.9H, Lymphocytes (%) (Auto) 6.9L, Monocytes (%) (Auto) 5.5H, Eosinophils (%) (Auto) 0.1, Basophils (%) (Auto) 0.2, Neutrophils # (Auto) 8.2, Lymphocytes # (Auto) 0.7L, Monocytes # (Auto) 0.5, Eosinophils # (Auto) 0.0, Basophils # (Auto) 0.0, Nucleated Red Blood Cells % (auto) 0.0, Anion Gap 1L, Glomerular Filtration Rate > 60.0, Calcium Level 8.3L, Total Bilirubin 0.4, Aspartate Amino Transf (AST/SGOT) 8, Alanine Aminotransferase (ALT/SGPT) 16, Alkaline Phosphatase 69, Total Protein 6.4, Albumin 3.0L, Albumin/Globulin Ratio 0.9 10/13/19 08:01: Blood Gas Bicarbonate Standard 32.8H, Arterial Blood pH 7.291L, Arterial Blood Partial Pressure CO2 85.1*H, Arterial Blood Partial Pressure O2 90.4, Arterial Blood Total CO2 42.7H, Arterial Blood HCO3 40.1H, Arterial Blood Base Excess 9.1H, Arterial Blood Oxygen Saturation 96.1 CBC/BMP Laboratory Tests 10/13/19 03:17 Microbiology Microbiology 10/11/19 Blood Culture - Preliminary, Resulted No Growth after 48 hours. All Specime... 10/11/19 Blood Culture - Preliminary, Resulted No Growth after 48 hours. All Specime... 10/10/19 Blood Culture - Preliminary, Resulted No Growth after 72 hours. All specime... 10/10/19 Blood Culture - Final, Complete Staphylococcus Simulans GEM FONG D.O. October 13, 2019 22:41 PRISCA GRAMAJO MD Oct 18, 2019 22:14
[2019-10-14] VITALS (25 sets, daily range): BP systolic 126–151; BP diastolic 69–93; O2SAT 87–94
[2019-10-14] MEDS: IPRATROPIUM 0.02% SOLN 0.5MG/2.5 ML NEB INH SCH ×3 (01:58→13:34)
[2019-10-14] MEDS: LEVALBUTEROL 1.25 MG/0.5 ML CONCENTRATE NEB INH SCH ×4 (04:10→19:46)
[2019-10-14 05:33] LABS: HEMATOCRIT 55.1 % (42.0-52.0); HEMOGLOBIN 15.9 g/dl (13.5-17.5); MEAN CORPUSCULAR HEMOGLOBIN 28.8 pg (27.0-33.0); MEAN CORPUSCULAR HGB CONC 28.9 g/dl (32.0-36.5); MEAN CORPUSCULAR VOLUME 99.6 fl (80.0-96.0); PLATELET COUNT, AUTOMATED 199 10^3/uL (150-450); RED BLOOD COUNT 5.53 10^6/uL (4.30-6.10); WHITE BLOOD COUNT 8.4 10^3/uL (4.0-10.0)
[2019-10-14 05:45] LABS: ABG BASE EXCESS 11.3 (-2.0-2.0); ABG O2 SATURATION 94.7 % (95.0-99.0); ABG PARTIAL PRESSURE O2 80.6 mmHg (75.0-100.0); ABG STANDARD HCO3 35.1 MEQ/L (22.0-26.0); ABG TOTAL CO2 45.8 MEQ/L (22.0-29.0); ABG pH (ARTERIAL) 7.291 UNITS (7.350-7.450)
[2019-10-14 05:47] LABS: ABG PARTIAL PRESSURE CO2 91.3 mmHg (35.0-45.0)
[2019-10-14 05:57] LABS: ALBUMIN 2.7 GM/DL (3.2-5.2); ALT/SGPT 18 U/L (12-78); BILIRUBIN,TOTAL 0.3 MG/DL (0.2-1.0); BLOOD UREA NITROGEN 25 MG/DL (7-18); CALCIUM LEVEL 8.5 MG/DL (8.5-10.1); CARBON DIOXIDE LEVEL 44 MEQ/L (21-32); CHLORIDE LEVEL 95 MEQ/L (98-107); CREATININE FOR GFR 0.56 MG/DL (0.70-1.30); GLOMERULAR FILTRATION RATE > 60.0 (>56); GLUCOSE, FASTING 205 MG/DL (70-100); POTASSIUM SERUM 4.8 MEQ/L (3.5-5.1); SODIUM LEVEL 141 MEQ/L (136-145); TOTAL PROTEIN 5.9 GM/DL (6.4-8.2)
[2019-10-14] MEDS: MOXIFLOXACIN 400 MG TAB PO SCH (06:15)
[2019-10-14] MEDS: SLF 3 ML SYR IV SCH ×3 (06:16→20:19)
[2019-10-14] MEDS: methylPREDNISolone INJ 40 MG/1 ML VIAL (J2920) IV SCH ×2 (08:01→20:19)
[2019-10-14] MEDS: DOCUSATE SODIUM 100 MG CAP PO SCH ×2 (08:02→20:19)
[2019-10-14] MEDS: NORCO, ANEXSIA 5/325MG TABLET (HYDROcodone/ACETAMINOPHEN) PO PRN (08:02)
[2019-10-14] MEDS: ENOXAPARIN 40MG/0.4ML SYRINGE (J1650 PER 10MG) SC SCH (08:03)
--- NOTE | 2019-10-14 19:36 | IPNPDOC ---
Date Seen The patient was seen on 10/14/19. Progress Note SUBJECTIVE: Date was seen and examined this morning by the hospitalist service while lying upright in bed. He was wearing 10 L of high flow nasal cannula. His morning ABG showed a PCO2 that increased to 91, without any change in pH from yesterday's ABG. He reports no shortness of breath while on the supplemental oxygen and was able to get good sleep using the tabletop BiPAP and nasal cannula overnight. Per report, respiratory therapy, changed his expiratory pressure on the tabletop from 8-10. He denies fever, chills, night sweats, chest pain, palpitations, abdominal pain, nausea, or vomiting. OBJECTIVE PHYSICAL EXAMINATION: VITAL SIGNS: Please see below. GENERAL: Pleasant, mildly anxious, thin lying upright in bed. Wearing supplemental high flow oxygen and see. Alert and oriented 3. HEENT: Wearing high flow NC. Normocephalic, atraumatic. PERRLA, noninjected, anicteric sclera. Trachea is midline. RESPIRATORY: Breathing on 10 L of high flow nasal cannula. Bilateral inspiratory crackles posteriorly. No wheezes or rhonchi appreciated. Diminished breath sounds with mild accessory muscle use. Symmetric chest expansion. Speaking full sentences. CARDIOVASCULAR: RRR, no murmurs/rubs/gallops, +S1, S2. ABDOMEN: Soft, nontender. Moderate abdominal distention with no guarding or rigidity. EXTREMITIES: Lower extremities free of edema with no appreciated cyanosis or clubbing NEUROLOGICAL: Awake, alert and oriented 3. No focal neurologic deficits appreciated. Non-dysarthric speech. PSYCHIATRIC: Mood and affect appear appropriate LABORATORY DATA, IMAGING STUDIES, MICROBIOLOGY: Please see below. ASSESSMENT AND PLAN: This is a 53-year-old male w/ h/o O2 dependent COPD and sleep apnea not on home CPAP, who presented as direct admit from [facility] on 10/09 with acute hypercapnic respiratory failure secondary to COPD exacerbation. #Acute hypercapnic respiratory failure 2/2 COPD exacerbation -ABG pCO2 this morning was 91, with no change in pH from yesterday -table top BiPap inspiratory pressure increased from 18 to 20 to help improve tidal volume, minute ventilation, and subsequently help with worsened CO2 retention during sleep -Continue with scheduled Xopenex nebulizer treatments -home albuterol prn inhaler continued; c/w scheduled IV steroids of solumderol 40mg bid per recommendation of pulmonology -c/w scheduled xopenex -PO moxifloxacin, Day #5 -Continue with nocturnal BiPap qHS and with naps; c/w prn short acting anticholinergic (ipratropium) -O2 saturation titration orders: 88-92%; continuous pulse ox -PFS consult to help pt obtain home O2 concentrator for high flow supplemental O2 upon discharge; f/u with elementary instructional coach soon after d/c to obtain home BiPap -Pulmonology/ Critical Care service consulted and primary team appreciates their continued insights and recommendations -1 of 2 initial blood cultures came back positive for gram-positive cocci in clusters, potentially contaminated; follow up second set of blood cultures ordered Wednesday had no growth after 48 hours. -spoke at length with pt's two sisters today (one of whom is pt's HCP [Anna]) regarding pt's developments and the goals of inpatient treatment moving forward. #Sleep apnea -review of prior records showed overnight sleep study in April 2018 demonstrating sleep apnea. -this likely worsens his overnight CO2 build-up and chronic retention -likely will use home BiPap upon d/c with coterminous supplemental O2 bled in #Chronic back pain -home norco continued -takes chronically at home; nonetheless, on pulse ox for monitoring DVT prophylaxis: sc lovenox Disposition: Pending PFS procuring home O2 concentrator Wednesday and arrangements for home BiPap VS, I&O, 24H, [place] Vital Signs/I&O Vital Signs Date Time Temp Pulse Resp B/P (MAP) Pulse Ox O2 Delivery O2 Flow Rate FiO2 10/14/19 18:00 92 Nasal Cannula 10.0 10/14/19 16:00 96.7 79 20 142/93 (109) 10/12/19 10:09 50 I&O- Last 24 Hours up to 6 AM 10/14/19 06:00 Intake Total 1320 ml Output Total 1100 ml Balance 220 ml Laboratory Data 24H LABS Laboratory Tests 2 10/14/19 05:15: Nucleated Red Blood Cells % (auto) 0.0, Anion Gap 2L, Glomerular Filtration Rate > 60.0, Calcium Level 8.5, Total Bilirubin 0.3, Aspartate Amino Transf (AST/SGOT) 9, Alanine Aminotransferase (ALT/SGPT) 18, Alkaline Phosphatase 65, Total Protein 5.9L, Albumin 2.7L, Albumin/Globulin Ratio 0.8 10/14/19 05:38: Blood Gas Bicarbonate Standard 35.1H, Arterial Blood pH 7.291L, Arterial Blood Partial Pressure CO2 91.3*H, Arterial Blood Partial Pressure O2 80.6, Arterial Blood Total CO2 45.8H, Arterial Blood HCO3 43.0H, Arterial Blood Base Excess 11.3H, Arterial Blood Oxygen Saturation 94.7L CBC/BMP Laboratory Tests 10/14/19 05:15 Microbiology Microbiology 10/11/19 Blood Culture - Preliminary, Resulted No Growth after 72 hours. All specime... 10/11/19 Blood Culture - Preliminary, Resulted No Growth after 72 hours. All specime... 10/10/19 Blood Culture - Preliminary, Resulted No Growth after 72 hours. All specime... 10/10/19 Blood Culture - Final, Complete Staphylococcus Simulans GEM FONG D.O. October 14, 2019 19:36
[2019-10-14] MEDS: FAMOTIDINE 20 MG TAB PO SCH (20:19)
[2019-10-15] VITALS (10 sets, daily range): BP systolic 121–142; BP diastolic 70–91; O2SAT 88–96
[2019-10-15] MEDS: LEVALBUTEROL 1.25 MG/0.5 ML CONCENTRATE NEB INH SCH ×4 (00:12→20:41)
[2019-10-15] MEDS: IPRATROPIUM 0.02% SOLN 0.5MG/2.5 ML NEB INH SCH ×3 (00:12→13:09)
[2019-10-15 03:27] LABS: ABG BASE EXCESS 13.3 (-2.0-2.0); ABG HCO3 45.7 MEQ/L (22.0-26.0); ABG O2 SATURATION 92.3 % (95.0-99.0); ABG PARTIAL PRESSURE O2 65.8 mmHg (75.0-100.0); ABG STANDARD HCO3 37.1 MEQ/L (22.0-26.0); ABG TOTAL CO2 48.6 MEQ/L (22.0-29.0); ABG pH (ARTERIAL) 7.299 UNITS (7.350-7.450)
[2019-10-15 03:28] LABS: ABG PARTIAL PRESSURE CO2 95.2 mmHg (35.0-45.0)
[2019-10-15 06:27] LABS: HEMATOCRIT 53.8 % (42.0-52.0); HEMOGLOBIN 15.8 g/dl (13.5-17.5); MEAN CORPUSCULAR HEMOGLOBIN 29.1 pg (27.0-33.0); MEAN CORPUSCULAR HGB CONC 29.4 g/dl (32.0-36.5); MEAN CORPUSCULAR VOLUME 99.1 fl (80.0-96.0); PLATELET COUNT, AUTOMATED 226 10^3/uL (150-450); RED BLOOD COUNT 5.43 10^6/uL (4.30-6.10)
[2019-10-15] MEDS: MOXIFLOXACIN 400 MG TAB PO SCH (06:35)
[2019-10-15] MEDS: SLF 3 ML SYR IV SCH ×3 (06:36→22:12)
[2019-10-15 06:55] LABS: ALBUMIN 2.8 GM/DL (3.2-5.2); ALT/SGPT 15 U/L (12-78); BILIRUBIN,TOTAL 0.5 MG/DL (0.2-1.0); BLOOD UREA NITROGEN 28 MG/DL (7-18); CALCIUM LEVEL 8.5 MG/DL (8.5-10.1); CARBON DIOXIDE LEVEL 44 MEQ/L (21-32); CHLORIDE LEVEL 94 MEQ/L (98-107); CREATININE FOR GFR 0.48 MG/DL (0.70-1.30); GLOMERULAR FILTRATION RATE > 60.0 (>56); GLUCOSE, FASTING 148 MG/DL (70-100); POTASSIUM SERUM 4.9 MEQ/L (3.5-5.1); SODIUM LEVEL 137 MEQ/L (136-145); TOTAL PROTEIN 5.9 GM/DL (6.4-8.2)
[2019-10-15] MEDS: ENOXAPARIN 40MG/0.4ML SYRINGE (J1650 PER 10MG) SC SCH (08:37)
[2019-10-15] MEDS: DOCUSATE SODIUM 100 MG CAP PO SCH ×2 (08:37→20:53)
[2019-10-15] MEDS: NORCO, ANEXSIA 5/325MG TABLET (HYDROcodone/ACETAMINOPHEN) PO PRN ×2 (08:37→20:54)
[2019-10-15] MEDS: methylPREDNISolone INJ 40 MG/1 ML VIAL (J2920) IV SCH (08:37)
--- NOTE | 2019-10-15 12:01 | IPNPDOC ---
Date Seen The patient was seen on 10/15/19. Progress Note Mr. Catalan has had worsening O2 saturation an ABG overnight, was transferred to the ICU for further monitoring and BiPAP. Patient was placed on BiPAP with settings of 20/10, seen in the morning, comfortable, without any complaints. He reports that his dyspnea and cough are close to baseline and denies any changes since yesterday. Patient's sister is also at bedside and they have elected to make the patient DNR/DNI and comfort measures only giving his advanced COPD and chronic respiratory failure. MOLST form signed. Patient would like to stay on BiPAP and arrange for outpatient BiPAP/oxygen therapy for comfort. The remainder of his medications will be discontinued, unless needed for comfort. DNR/DNI/ANIMAL CARE ATTENDANT orders placed, can be diet related to PCU, hospice consulted with plan for discharge tomorrow once home oxygen has been arranged for. VS, I&O, 24H, Fishbone Vital Signs/I&O Vital Signs Date Time Temp Pulse Resp B/P (MAP) Pulse Ox O2 Delivery O2 Flow Rate FiO2 10/15/19 10:45 22 91 High Flow Cannula 15.0 10/15/19 09:00 84 124/91 (102) 50 10/15/19 08:00 98.1 I&O- Last 24 Hours up to 6 AM 10/15/19 06:00 Intake Total 1320 ml Output Total 1620 ml Balance -300 ml Laboratory Data 24H LABS Laboratory Tests 2 10/15/19 03:21: Blood Gas Bicarbonate Standard 37.1H, Arterial Blood pH 7.299L, Arterial Blood Partial Pressure CO2 95.2*H, Arterial Blood Partial Pressure O2 65.8L, Arterial Blood Total CO2 48.6H, Arterial Blood HCO3 45.7H, Arterial Blood Base Excess 13.3H, Arterial Blood Oxygen Saturation 92.3L 10/15/19 06:09: Nucleated Red Blood Cells % (auto) 0.0, Anion Gap , Glomerular Filtration Rate > 60.0, Calcium Level 8.5, Total Bilirubin 0.5#, Aspartate Amino Transf (AST/SGOT) 14, Alanine Aminotransferase (ALT/SGPT) 15, Alkaline Phosphatase 60, Total Protein 5.9L, Albumin 2.8L, Albumin/Globulin Ratio 0.9 CBC/BMP Laboratory Tests 10/15/19 06:09 Microbiology Microbiology 10/11/19 Blood Culture - Preliminary, Resulted No Growth after 72 hours. All specime... 10/11/19 Blood Culture - Preliminary, Resulted No Growth after 72 hours. All specime... 10/10/19 Blood Culture - Final, Complete NO GROWTH AFTER 5 DAYS 10/10/19 Blood Culture - Final, Complete Staphylococcus Simulans PRISCA GRAMAJO MD October 15, 2019 12:01
[2019-10-15] MEDS: FAMOTIDINE 20 MG TAB PO SCH (20:54)
[2019-10-16] MEDS: IPRATROPIUM 0.02% SOLN 0.5MG/2.5 ML NEB INH SCH ×3 (02:09→13:19)
[2019-10-16] MEDS: LEVALBUTEROL 1.25 MG/0.5 ML CONCENTRATE NEB INH SCH ×3 (02:09→13:19)
[2019-10-16 04:28] LABS: HEMOGLOBIN 15.6 g/dl (13.5-17.5); MEAN CORPUSCULAR HEMOGLOBIN 28.9 pg (27.0-33.0); MEAN CORPUSCULAR HGB CONC 28.9 g/dl (32.0-36.5); PLATELET COUNT, AUTOMATED 192 10^3/uL (150-450); WHITE BLOOD COUNT 9.4 10^3/uL (4.0-10.0)
[2019-10-16] MEDS: SLF 3 ML SYR IV SCH ×2 (05:58→14:00)
[2019-10-16] MEDS: DOCUSATE SODIUM 100 MG CAP PO SCH (08:20)
[2019-10-16] MEDS: NORCO, ANEXSIA 5/325MG TABLET (HYDROcodone/ACETAMINOPHEN) PO PRN (08:31)
[2019-10-16] MEDS ORDERED: predniSONE 50 MG TAB PO SCH (09:00)
--- NOTE | 2019-10-16 13:10 | IPNPDOC ---
Date Seen The patient was seen on 10/16/19. Progress Note SUBJECTIVE: Patient was seen and examined this morning. He has been made comfort measures only due to his end-stage COPD. Currently the patient states that he is comfortable. He is maintained on 15 liters high flow nasal cannula. Hospice consult has been placed OBJECTIVE PHYSICAL EXAMINATION: VITAL SIGNS: Please see below. GENERAL: Awake, alert, and oriented. Not in acute distress. HEENT: atraumatic, normocephalic. Eyes are nonicteric. Trachea is midline CARDIOVASCULAR: Normal S1, S2. Regular rate and rhythm. No clicks rubs or murmurs RESPIRATORY: Diminish breath sounds throughout. Bibasilar crackles present. Symmetric chest expansion. No wheezes or rhonchi. Nasal cannula in place ABDOMINAL: Soft, nondistended. Nontender. No rebound tenderness or guarding. Normoactive bowel sounds throughout EXTREMITIES: No edema. Full and equal pulses in bilateral upper and lower extremities NEUROLOGICAL: No focal neurological deficits PSYCHOLOGICAL: Mood and affect appear appropriate for situation LABORATORY DATA, IMAGING STUDIES, MICROBIOLOGY: Please see below. ASSESSMENT AND PLAN: Patient is a 53 year old male who presented to [facility] as a direct admission from [facility] on 10/09 with acute hypercapnic respiratory failure 2/2 COPD exacerbation. Patient has been made DNR/DNI and comfort measures only and is currently awaiting hospice consult PROBLEMS: 1. Acute hypercapnic respiratory failure 2/2 end-stage (gold stage IV) COPD exacerbation -Patient is continued on high flow nasal cannula at 10L. Currently DNR/DNI. Hospice consult was placed yesterday. Plan to have patient discharged to home hospice. Given Oxygen requirements he will need O2 concentrator before discharge. -Will continue Prednisone -Continue Xopenex neb and Atrovent neb -All other medications have been discontinued given patients PROPERTY MANAGEMENT COORDINATOR status 2. Comfort measures only -Continue [place] DISPOSITION: Patient will be discharged to home hospice pending Hospice consult. Will need Home O2 concentrator and follow-up appointment with Pulmonary medicine for home BiPAP VS, I&O, 24H, [place] Vital Signs/I&O Vital Signs Date Time Temp Pulse Resp B/P (MAP) Pulse Ox O2 Delivery O2 Flow Rate FiO2 10/16/19 09:30 20 10/16/19 08:31 101 89 High Flow Cannula 15.0 10/16/19 08:00 50 10/15/19 09:00 124/91 (102) 10/15/19 08:00 98.1 I&O- Last 24 Hours up to 6 AM 10/16/19 05:59 Intake Total 660 ml Output Total 1325 ml Balance -665 ml Laboratory Data 24H LABS Laboratory Tests 2 10/16/19 04:12: Nucleated Red Blood Cells % (auto) 0.0 CBC/BMP Laboratory Tests 10/16/19 04:12 Microbiology Microbiology 10/11/19 Blood Culture - Preliminary, Resulted No Growth after 72 hours. All specime... 10/11/19 Blood Culture - Preliminary, Resulted No Growth after 72 hours. All specime... 10/10/19 Blood Culture - Final, Complete NO GROWTH AFTER 5 DAYS 10/10/19 Blood Culture - Final, Complete Staphylococcus Simulans FERNANDA LÓPEZ DO Oct 16, 2019 13:10
[2019-10-16 13:17] LABS: ABG BASE EXCESS 12.2 (-2.0-2.0); ABG HCO3 44.8 MEQ/L (22.0-26.0); ABG O2 SATURATION 86.6 % (95.0-99.0); ABG PARTIAL PRESSURE O2 54.2 mmHg (75.0-100.0); ABG STANDARD HCO3 35.7 MEQ/L (22.0-26.0); ABG TOTAL CO2 47.9 MEQ/L (22.0-29.0); ABG pH (ARTERIAL) 7.277 UNITS (7.350-7.450)
[2019-10-16 13:21] LABS: ABG PARTIAL PRESSURE CO2 98.3 mmHg (35.0-45.0)
[2019-10-16] MEDS ORDERED: PRED50TA PO (15:44)
[2019-10-16] MEDS ORDERED: PRED10TA2 PO (15:53)
--- NOTE | 2019-10-16 17:46 | DS.PDOC ---
Discharge Summary General Date of Admission October 10, 2019 at 07:56 Date of Discharge 10/16/19 Primary Care Physician: Trenton Cadena MD [facility] Attending Physician: PRISCA GRAMAJO MD Specialist/Consultants Involve: JENNIFER NULL MD Discharge Summary PROCEDURES PERFORMED DURING STAY: [None]. ADMITTING DIAGNOSES: 1. Acute Hypercarbic Respiratory Failure 2/2 COPD Exacerbation DISCHARGE DIAGNOSES: 1. Acute Hypercarbic respiratory Failure 2/2 COPD Exacerbation COMPLICATIONS/CHIEF COMPLAINT: COPD. HISTORY OF PRESENT ILLNESS: Patient is a 53 year old male with a past medical history significant for End-stage COPD on 4L O2 at home and CPAP for KEVEN who presented to [facility] as a direct admission from [facility] ([facility]) for acute hypercarbic respiratory failure. The patient had endorsed weakness in his lower extremities with multiple falls over the week prior to admission. Patient had stated that he had shaking of his upper and lower extremities. The patient had stated that he had multiple falls due to this and was subsequently sent to the hospital after his roommate had witnessed his fall. On presentation to [facility] his initial ABG demonstrated a respiratory acidosis with pH of 7.29, PCO2 117. He was placed on BiPAP and transferred to [facility]. At [facility] he had improvement in his hypercarbia with a PCO2 of 80. The patient was admitted for further evaluation and management HOSPITAL COURSE: On admission to [facility] the patient was continued on BIPAP as well as antibiotic coverage and IV steroids. Patient had been placed on table top BiPAP however was requiring increasing amounts of supplemental oxygen given his end-stage COPD. Patient was maintained on high flow nasal cannula of 15L. Given his increased oxygen requirements patient and his family made the decision to change code status to DNR/DNI and comfort measures only. Hospice consult was placed and patient was arranged to be discharged home with an O2 concentrator and home hospice. Patient has previously been diagnosed w/ KEVEN based on a sleep study but he did not get set up with CPAP because he reportedly did not feel symptomatic at the time. Patient is currently requesting CPAP/BiPAP at home to assist with work of breathing, will attempt to arrange if possible. DISCHARGE MEDICATIONS: Please see below. ALLERGIES: Please see below. PHYSICAL EXAMINATION ON DISCHARGE: VITAL SIGNS: Please see below. GENERAL: Awake, alert, and oriented. Appears in no acute distress. Lying comfortably in bed HEENT: Atraumatic, normocephalic. Eyes are nonicteric. Trachea is midline CARDIOVASCULAR EXAMINATION: Normal S1, S2. Regular rate and rhythm. No clicks rubs or murmurs RESPIRATORY EXAMINATION: Diminished breath sounds throughout. Bibasilar crackles in the bases bilaterally. No wheezes or rhonchi ABDOMINAL EXAMINATION: Soft, nondistended. Nontender. No rebound tenderness or guarding. Normoactive bowel sounds throughout EXTREMITIES: No edema. Full and equal pulses in bilateral upper and lower extremities NEUROLOGICAL EXAMINATION: No focal neurological deficits PSYCHIATRIC EXAMINATION: Mood and affect appear appropriate LABORATORY DATA: Please see below. IMAGING: PORTABLE CHEST X-RAY: Single view. HISTORY: COPD exacerbation. No comparison chest x-rays. Comparison is made with PET/CT imaging from March 29, 2018. FINDINGS: Monitoring electrodes overlie the chest. The lungs are symmetrically aerated and free of infiltrate. The pleural angles are sharp. Heart size is at the upper range of normal. Vascular interstitial markings are somewhat prominent. IMPRESSION: Borderline heart size. No focal infiltrate. Prominent pulmonary vascular interstitial markings. Electronically Signed by Dionte Tanner MD 10/10/2019 05:58 P PROGNOSIS: Poor overall Prognosis ACTIVITY: [As tolerated]. DIET: As tolerated DISCHARGE PLAN: Patient is to be discharged on home Hospice. He will use oxygen concentrator given oxygen requirements of 10L. Continue current home medications. Patient will follow-up with Pulmonary Medicine for BiPAP orders. DISCHARGE CONDITION: [Stable]. TIME SPENT ON DISCHARGE: Greater than 35 minutes. Vital Signs/I&Os Vital Signs Date Time Temp Pulse Resp B/P (MAP) Pulse Ox O2 Delivery O2 Flow Rate FiO2 10/16/19 09:30 20 10/16/19 08:31 101 89 High Flow Cannula 15.0 10/16/19 08:00 50 10/15/19 09:00 124/91 (102) 10/15/19 08:00 98.1 I&O- Last 24 Hours up to 6 AM 10/16/19 06:00 Intake Total 660 ml Output Total 1525 ml Balance -865 ml Laboratory Data Labs 24H Laboratory Tests 2 10/16/19 04:12: Nucleated Red Blood Cells % (auto) 0.0 10/16/19 13:06: Blood Gas Bicarbonate Standard 35.7H, Arterial Blood pH 7.277L, Arterial Blood Partial Pressure CO2 98.3*H, Arterial Blood Partial Pressure O2 54.2L, Arterial Blood Total CO2 47.9H, Arterial Blood HCO3 44.8H, Arterial Blood Base Excess 12.2H, Arterial Blood Oxygen Saturation 86.6L CBC/BMP Laboratory Tests 10/16/19 04:12 Microbiology Microbiology 10/11/19 Blood Culture - Final, Complete NO GROWTH AFTER 5 DAYS 10/11/19 Blood Culture - Final, Complete NO GROWTH AFTER 5 DAYS 10/10/19 Blood Culture - Final, Complete NO GROWTH AFTER 5 DAYS 10/10/19 Blood Culture - Final, Complete Staphylococcus Simulans Discharge Medications Scheduled Prednisone (Prednisone) 10 Mg Tablet, 10 MG PO TAPER Take 4 tabs daily x 3 days, then 3 tabs daily x 3 days, then 2 tabs daily x 3 days, then 1 tab daily x 3 days and stop Umeclidinium Brm/Vilanterol Tr (Anoro Ellipta 62.5-25 Mcg INH) 1 Aer Aer, 1 PUFF INH QHS, (Reported) Scheduled PRN Albuterol Sulfate (Proair Hfa) 108 Mcg/Act Aer, 2 PUFF INH for SHORTNESS OF VENESSA TH, (Reported) Hydrocodone/Acetaminophen (Hydrocodone-Acetamin 5-325 mg) 1 Tab Tab, 1 TAB PO BID PRN for PAIN, (Reported) Allergies Coded Allergies: ibuprofen (Unverified Allergy, Severe, difficulty breathing, 10/10/19) naproxen (Unverified Allergy, Severe, rash,difficulty breathing, 10/10/19) tramadol (Unverified Allergy, Severe, difficulty breathing, 10/10/19) cyclobenzaprine (Verified Allergy, Intermediate, HIVES, 10/10/19) morphine (Unverified Adverse Reaction, Intermediate, severe headache, 10/10/19) FERNANDA LÓPEZ DO Oct 16, 2019 17:46 PRISCA GRAMAJO MD Oct 18, 2019 09:57
== END 2019-10-16 17:29 | disposition hospice, home (50) | DRG 189 ==
LOC: M ICU 07:56 → M PCU 10-12 14:02 → M ICU 10-15 04:02 → M PCU 10-15 12:45
PROVIDERS: ADMIT Internal Medicine; ATTEND Internal Medicine
DX: J96.02 Acute respiratory failure with hypercapnia (principal); J44.1 Chronic obstructive pulmonary disease with (acute) exacerbation; J96.11 Chronic respiratory failure with hypoxia; M54.9 Dorsalgia, unspecified; G47.33 Obstructive sleep apnea (adult) (pediatric); R63.4 Abnormal weight loss; Z51.5 Encounter for palliative care; Z66 Do not resuscitate; Z79.899 Other long term (current) drug therapy; Z88.5 Allergy status to narcotic agent; Z99.81 Dependence on supplemental oxygen; Z88.6 Allergy status to analgesic agent; Z88.8 Allergy status to other drugs, medicaments and biological substances; Z87.891 Personal history of nicotine dependence